=== PATIENT | male | born 1950 | race Caucasian/White ===

== ENCOUNTER → 2018-09-14 | Outpatient (CLI) | payer MEDICARE, OTHER | LOC: M RAD 12:17 | DX: M25.551 Pain in right hip (principal); M25.552 Pain in left hip | CPT/HCPCS: 73521 ==

== ENCOUNTER → 2018-10-04 | Outpatient (CLI) | payer MEDICARE, OTHER | LOC: M RADPRO 11:30 | DX: M16.11 Unilateral primary osteoarthritis, right hip (principal) | CPT/HCPCS: 20610 ==

== ENCOUNTER → 2018-10-04 | Outpatient (CLI) | payer OTHER ==
[~2018-10-04] MED LIST: CONRAY-43 43% 50ML VIAL (Q9960) As Ordered; LIDOCAINE 1% MDV 20ML VIAL As Ordered; TRIAMCINOLONE ACETONIDE SUSP 40 MG/ML VIAL (J3301) As Ordered
== END ==
LOC: M PAIN 13:00
DX: M25.551 Pain in right hip (principal); G89.29 Other chronic pain; E11.9 Type 2 diabetes mellitus without complications; K21.9 Gastro-esophageal reflux disease without esophagitis; Z79.82 Long term (current) use of aspirin; Z79.84 Long term (current) use of oral hypoglycemic drugs; Z79.899 Other long term (current) drug therapy
CPT/HCPCS: J3301

== ENCOUNTER → 2018-11-08 | Outpatient (CLI) | payer MEDICARE, OTHER | LOC: M RAD 17:01 | DX: M25.751 Osteophyte, right hip (principal); M25.551 Pain in right hip | CPT/HCPCS: 73700 ==

== ENCOUNTER → 2018-12-09 | Outpatient (CLI) | payer MEDICARE, OTHER ==
[~2018-12-09] MED LIST changes: +ASPI81TA85 PO; +B-COTAB10 PO; +CINN1CAP6 PO; -CONRAY-43 43% 50ML VIAL (Q9960) As Ordered; +CYCL10TA PO; +ISOVUE-370 76% 100ML VIAL (Q9967) As Ordered ONE; +LASI80TA3 PO; -LIDOCAINE 1% MDV 20ML VIAL As Ordered; +METO75TA PO; +MOBI4TAB PO; +MULTCAP PO; +NIAC10TAB PO; +OXYC10TA12 PO; +PRAV20TA2 PO; +TERB250T12 PO; -TRIAMCINOLONE ACETONIDE SUSP 40 MG/ML VIAL (J3301) As Ordered; +TURM500C PO; +VALS1TAB46 PO; +VITA500C24 PO; +[UNRECOGNIZED DRUG - CODE] PO; +[UNRECOGNIZED DRUG - CODE] PO
--- NOTE | 2018-12-09 15:54 | REP ---
CT lumbar spine without contrast History: Sacroiliac joint pain A diffuse disc bulge with associated osteophyte formation is present at the L1-2 level. There is hypertrophy of the ligamenta flava and posterior to the facets. These findings produce minimal central canal stenosis. The L1 nerves exit the neural foramina without compression. A diffuse disc bulge is present at the L2-3 level. There is hypertrophy of the ligamenta flava and posterior articulating facets. These findings produce moderate central canal stenosis. There is compression of the L2 nerves in the neural foramina. A diffuse disc bulge is present at the L3-4 level. There is hypertrophy of the ligamenta flava and posterior articulating facets. There are 4 mm of the grade 1 spondylolisthesis of L3 on 4. These findings produce severe central canal stenosis. There is compression of the L3 nerves in the neural foramina. A diffuse disc bulge is present at the L4-5 level. There is hypertrophy of the ligamenta flava and posterior articulating facets. There are 4 mm of grade 1 spondylolisthesis of L4 on 5. These findings produce severe central canal stenosis. There is compression of the L4 nerves in the neural foramina. A diffuse disc bulge is present at the L5-S1 level. There is mild compression of the thecal sac. There is hypertrophy of the posterior articulating facets. There are 4 mm of grade 1 spondylolisthesis of L5 on S1. There is compression of the L5 nerves in the neural foramina. The lumbar intervertebral discs are decreased in height. Vacuum phenomenon is present at the L3-4 and L4-5 levels. These findings are consistent with disc degeneration. There is minimal scoliosis convex to the left. Calcifications are present in the right kidney consistent with nephrolithiasis. IMPRESSION: 1. Minimal central canal stenosis at the L1-2 level secondary to disc bulge, ligamentous, and facet hypertrophy and osteophyte formation. 2. Moderate central canal stenosis at the L2-3 level secondary to disc bulge, ligamentous, and facet hypertrophy. 3. Severe central canal stenosis at the L3-4 and L4-5 levels secondary to disc bulge, ligamentous, and facet hypertrophy and grade 1 spondylolisthesis. 4. Diffuse disc bulge at the L5-S1 level with mild thecal sac compression. There is grade 1 spondylolisthesis of L5 on S1. Electronically Signed by Shen Abernathy MD 12/09/2018 04:30 P
== END ==
LOC: M RAD 14:21
PROVIDERS: ATTEND Nurse Practitioner Family
DX: M48.00 Spinal stenosis, site unspecified (principal); M51.26 Other intervertebral disc displacement, lumbar region; M51.27 Other intervertebral disc displacement, lumbosacral region; M47.817 Spondylosis without myelopathy or radiculopathy, lumbosacral region; M53.3 Sacrococcygeal disorders, not elsewhere classified

== ENCOUNTER → 2018-12-09 | Outpatient (CLI) | payer MEDICARE, OTHER ==
[~2018-12-09] MED LIST changes: -ISOVUE-370 76% 100ML VIAL (Q9967) As Ordered ONE
--- NOTE | 2018-12-09 20:51 | REP ---
CT study of chest with IV contrast: History: Cough. Bilateral hilar soft tissue fullness. And right paratracheal thickening on recent chest x-ray at [facility]. Comparison is made with a October 14, 2013 prior chest x-ray from [facility]. CT contrast dose: 100 mL of intravenous Isovue 370 is administered. Technique: The patient was apparently unable to lay on his back due to pain and thus, the study was acquired in a prone position. CT findings: There are some in the dependent lung congestion changes anteriorly due to the prone position. No infiltrate is seen in the lung henao. There is no evidence of hilar or mediastinal lymphadenopathy. Some vascular calcifications noted in the aorta. No evidence of aneurysm or dissection. The thoracic aorta is slightly tortuous. No filling defect is seen in the pulmonary arterial tree. No adrenal lesion is observed. There is opaque material in the somewhat contracted appearing gallbladder consistent with cholelithiasis. There is mild diffuse fatty infiltration of the liver. The right kidney is quite abnormal showing hydronephrosis, delayed contrast enhancement, and a right renal pelvic calculus measuring 1.3 cm in greatest diameter consistent with a obstructive calculus at the ureteropelvic junction. There is peripelvic and periureteral stranding. Perinephric stranding is seen. There is a second large intrarenal calculus in the right mid kidney which measures 1.2 cm. There are multiple other intrarenal calculi in the right kidney. The kidneys are incompletely seen on the scan. Impression: 1. No active disease seen in the chest. 2. There is obstructive uropathy of the right kidney with a 1.3 cm right ureteropelvic junction obstructive stone and multiple large intrarenal calculi in the right kidney. Recommend neurology evaluation. 3. Cholelithiasis. 4. Fatty infiltration of the liver. Electronically Signed by Babar Mcdonald MD 12/10/2018 10:41 A
== END ==
LOC: M RAD 14:04
PROVIDERS: ATTEND Internal Medicine
DX: N20.0 Calculus of kidney (principal); N13.8 Other obstructive and reflux uropathy; K76.0 Fatty (change of) liver, not elsewhere classified; R05 Cough; M48.00 Spinal stenosis, site unspecified; M51.26 Other intervertebral disc displacement, lumbar region; M51.27 Other intervertebral disc displacement, lumbosacral region; M47.817 Spondylosis without myelopathy or radiculopathy, lumbosacral region; M53.3 Sacrococcygeal disorders, not elsewhere classified
CPT/HCPCS: 71260; 72131; Q9967

== ENCOUNTER → 2018-12-23 | Outpatient (CLI) | payer OTHER ==
[~2018-12-23] MED LIST changes: +BUPIVACAINE HCL 0.25% 30 ML VIAL As Ordered ONE; +ISOVUE-M 300 61% 15ML VIAL (Q9967) As Ordered ONE; +LIDOCAINE 1% SDV INJ 30 ML VIAL As Ordered ONE; +TRIAMCINOLONE ACETONIDE SUSP 40 MG/ML VIAL (J3301) As Ordered ONE; +diazePAM 5 MG TAB As Ordered ONE; +oxyCODONE 5MG TAB As Ordered ONE
--- NOTE | 2018-12-23 15:49 | REP ---
SI joint series: Bilateral study three views. History: SI joint injection for pain. Findings: A sequence of three last image hold fluoroscopically obtained spot radiographs of the SI joints document various needle positions and contrast injections associated with bilateral SI joint injection procedure. 16 seconds of fluoroscopy time is utilized. Electronically Signed by Babar Mcdonald MD 12/23/2018 04:01 P
--- NOTE | 2019-01-06 00:03 | ECWPNPC ---
PATIENT NAME: GIANNA QUAN : 1950 GENDER: MALE VISIT DATE: 12/23/2018 DISCHARGE DATE: 12/23/18 1619 VISIT LOCKED DATE TIME: PHYSICIAN: ESTER KERN MD RESOURCE: ESTER KERN MD REASON FOR APPOINTMENT 1. SIJ HISTORY OF PRESENT ILLNESS HISTORY OF PRESENT ILLNESS: PAIN THE PATIENT DESCRIBES THE PAIN... FALL RISK SCREENING: SCREENING :NO FALLS IN THE PAST YEAR CURRENT MEDICATIONS TAKING OXYCODONE HCL 10 MG TABLET 1 TABLET NEEDED ORALLY EVERY 8 HRS, NOTES: 0500 TAKING ERGOCALCIFEROL 54679 UNIT CAPSULE 1 CAPSULE ORALLY , NOTES: 1 WEEK AGO TAKING FLEXERIL 10 MG 30 10 MG TABLETS ONE TABLET ORALLY EVERY 8 HOURS PRN PAIN, NOTES: 2400 TAKING METOPROLOL TARTRATE 75 MG TABLET 1 TABLET WITH FOOD ORALLY DAILY, NOTES: 12/22/18@2400 TAKING VALSARTAN 40 MG TABLET 1 TABLET ORALLY ONCE A DAY, NOTES: 2400 TAKING OMEPRAZOLE 20 MG CAPSULE DELAYED RELEASE 1 CAPSULE ORALLY BID, NOTES: 12/22/18@2400 TAKING METFORMIN HCL 500 MG TABLET 1 TABLET WITH A MEAL ORALLY BID, NOTES: 0600 TAKING ASPIR-81 81 MG TABLET DELAYED RELEASE 1 TABLET ORALLY ONCE A DAY, NOTES: 2 DAYS AGO TAKING MELOXICAM 7.5 MG TABLET 1 TABLET ORALLY ONCE A DAY, NOTES: 2 DAYS AGO TAKING CINNAMON 500 MG TABLET ORALLY BID, NOTES: 0600 TAKING VITAMIN C 1000 MG TABLET 1 TABLET ORALLY ONCE A DAY, NOTES: 0600 TAKING CENTRUM SILVER - TABLET ORALLY , NOTES: 12/22/18@2400 TAKING SUPER B COMPLEX , NOTES: 12/22/18@2400 TAKING FOLIC ACID 800 MCG TABLET 1 TABLET ORALLY ONCE A DAY, NOTES: 12/22/18@2400 TAKING VITAMIN B-12 1000 MCG TABLET 2 TABLET ORALLY ONCE A DAY, NOTES: 12/22/18@2400 TAKING VITAMIN B-1 100 MG TABLET 1 TABLET ORALLY ONCE A DAY, NOTES: 12/22/18@2400 TAKING VITAMIN B6 200 MG TABLET 1 TABLET ORALLY ONCE A DAY, NOTES: 12/22/18@2400 TAKING VITAMIN E 400 UNIT CAPSULE 1 CAPSULE ORALLY ONCE A DAY, NOTES: 12/22/17@2400 NOT-TAKING NICADAN - TABLET ORALLY , NOTES: 0600 NOT-TAKING LASIX 20 MG TABLET 1 TABLET ORALLY BID NEEDED, NOTES: 6 MONTHS AGO DISCONTINUED PRAVASTATIN SODIUM 80 MG TABLET 1 TABLET ORALLY ONCE A DAY, NOTES: NOT CURRENTLY TAKING MEDICATION LIST REVIEWED AND RECONCILED WITH THE PATIENT PAST MEDICAL HISTORY CHRONIC PAIN HYPERLIPIDEMIA ALLERGIES N.K.D.A. SURGICAL HISTORY NO SURGICAL HISTORY DOCUMENTED. FAMILY HISTORY FATHER: DIAGNOSED WITH HYPERTENSION, CANCER MOTHER: DIAGNOSED WITH HYPERTENSION SOCIAL HISTORY GENERAL: TOBACCO USE ARE YOU A:NONSMOKER ALCOHOL SCREENING DID YOU HAVE A DRINK CONTAINING ALCOHOL IN THE PAST YEAR?YES HOW OFTEN DID YOU HAVE A DRINK CONTAINING ALCOHOL IN THE PAST YEAR?MONTHLY OR LESS (1 POINT) HOW MANY DRINKS DID YOU HAVE ON A TYPICAL DAY WHEN YOU WERE DRINKING IN THE PAST YEAR?1 OR 2 (0 POINTS) HOW OFTEN DID YOU HAVE SIX OR MORE DRINKS ON ONE OCCASION IN THE PAST YEAR?NEVER (0 POINTS) POINTS1 INTERPRETATIONNEGATIVE LANGUAGE LANGUAGES SPOKEN:FAROESE LEARNING BARRIERS / SPECIAL NEEDS BARRIERS TO LEARNING?NO HEARING IMPAIRED?YES :HEARING AIDES VISION IMPAIRED?YES :CORRECTIVE LENSES COGNITIVELY IMPAIRED?NO READINESS TO LEARN?YES OCCUPATION: DIABLED. DIET: LOW FAT, LOW CHOLESTEROL, NO CONCENTRATED SWEETS.. EXERCISE: NONE. MARITAL STATUS: . OTHERS AT HOME: SPOUSE, OTHER NON-RELATIVE. PAIN CLINIC PFS, CLERGY, PUBLIC HEALTH REFERRALS HAS THE PATIENT BEEN EDUCATED REGARDING HIS/HER PLAN OF CARE?YES HAS THE PATIENT BEEN EDUCATED REGARDING PAIN, THE RISK FOR PAIN, THE IMPORTANCE OF EFFECTIVE PAIN MANAGEMENT, AND THE PAIN ASSESSMENT PROCESS?YES ADVANCE DIRECTIVE ADVANCE DIRECTIVE DISCUSSED WITH PATIENT:YES HOMERO QUAN [phone] REVIEWED WITH PT 10/04/18 1343 BVREVIEWED WITH PT 11/13/18 1332 BV. HOSPITALIZATION/MAJOR DIAGNOSTIC PROCEDURE CELLULITIS LEFT LEG (2 HOSPITALIZATION) REVIEW OF SYSTEMS REVIEWED BY: PROVIDER: . CONSTITUTIONAL: ANY CHANGE IN YOUR MEDICAL CONDITION? NO . CHILLS NO . FEVER NO . INFECTION: DO YOU HAVE NEW INFECTIONS? NO . DO YOU HAVE HISTORY OF MRSA? NO . MUSCULOSKELETAL: ANY NEW PATTERNS OF PAIN OR NUMBNESS? YES,MORE IN HANDS . GASTROENTEROLOGY: ANY NEW CHANGE IN BOWEL CONTROL? NO . GENITOURINARY: ANY NEW CHANGE IN BLADDER CONTROL? YES, URGENCY IS WORSE . IS THERE A CHANCE YOU COULD BE ? NO . HEMATOLOGY/LYMPH: DO YOU TAKE ANY BLOOD THINNERS? (FOR EXAMPLE- COUMADIN, PLAVIX, AGGRENOX, PLATEL, PRADAXA, OR XARELTO) NO . WHEN WAS YOUR LAST DOSE? DATE: TIME: . NEUROLOGY: HAVE YOU FALLEN IN THE PAST 12 MONTHS? YES . ANY NEW EXTREMITY NUMBNESS OR WEAKNESS? NO . CARDIOLOGY: DO YOU HAVE A PACEMAKER OR DEFIBRILLATOR? NO . RESPIRATORY: HAVE YOU BEEN SICK IN THE PAST WEEK? NO . FEVER NO . FLU LIKE SYMPTOMS? NO . COUGH NO . INTEGUMENTARY: DO YOU HAVE ANY RASHES OR OPEN SORES? NO . ALLERGIC/IMMUNO: ARE YOU ALLERGIC TO IV DYE? NO . ANY NEW ALLERGIES? NO . PSYCHIATRIC: DO YOU HAVE THOUGHTS OF HURTING YOURSELF OR SOMEONE ELSE? NO . ARE YOU ABUSED, NEGLECTED, OR IN AN UNSAFE ENVIRONMENT? NO . ENDOCRINOLOGY: ARE YOU DIABETIC? YES . OTHER: DO YOU NEED ANY PRESCRIPTIONS? NO . IF YES, PLEASE LIST: ____ . ANY NEW PROBLEMS WITH YOUR MEDICATIONS? NO . WHEN DID YOU LAST EAT? ____12/22/18 . WHEN DID YOU LAST DRINK? ____08 . WHAT DID YOU LAST DRINK? ____WATER . NAME OF PERSON DRIVING YOU HOME? ____CAROL . DO YOU HAVE ANY OTHER QUESTIONS OR CONCERNS YES BEEN FEELING VERY TIREDLAST FEW DAYS . VITAL SIGNS WT 275.2 LBS, HT 68 IN, BMI 41.84 INDEX, BP 135/75 MM HG, HR 62 /MIN, RR 18 /MIN, TEMP 97.5 F, OXYGEN SAT % 97%, SAFE IN ENV? (Y/N) Y, NA INITIALS [place] 12:36, REVIEWED BY: ALFREDO. ASSESSMENTS SACROILIITIS, NOT ELSEWHERE CLASSIFIED - M46.1 (PRIMARY) PROCEDURES PN SI PRE PROCEDURE DIAGNOSIS SACROILIITIS, SACROILIAC JOINT DYSFUNCTION POST PROCEDURE DIAGNOSIS SACROILIITIS, SACROILIAC JOINT DYSFUNCTION PROCEDURE BILATERAL SACROILIAC JOINT BLOCK SURGEON DR. ESTER KERN HOME APPLIANCE WASHING MACHINE MECHANIC NONE ANESTHESIA LOCAL PRE PROCEDURE NOTE PATIENT WITH HISTORY OF CHRONIC LOW BACK PAIN. I EVALUATED THE PATIENT AND REVIEWED THE CHART. I WENT OVER THE RISKS, ALTERNATIVES, AND BENEFITS ASSOCIATED WITH THIS PROCEDURE. THE PATIENT WOULD LIKE TO PROCEED AND GAVE CONSENT TO PERFORM THE PROCEDURE. THE PATIENT DENIES UNEXPLAINABLE WEIGHT LOSS, FEVER, CHILLS, OR NEW CHANGES IN URINARY OR BOWEL CONTROL DESCRIPTION OF PROCEDURE THE PATIENT WAS BROUGHT TO THE PROCEDURE ROOM AND PLACED IN THE PRONE POSITION. THE LUMBOSACRAL AREA WAS CLEANED WITH CHLORAPREP SOLUTION AND DRAPED ASEPTICALLY. THE PROCEDURE WAS DONE UNDER STERILE CONDITIONS. I CHECKED LATERALITY AND THE LEVEL WHERE THE PROCEDURE WAS GOING TO BE PERFORMED WITH THE PATIENT AND THE SUPPORTING STAFF AT THE MOMENT OF THE TIME OUT IN THE PROCEDURE ROOM. UNDER FLUOROSCOPIC GUIDANCE, TARGET POINT WAS SELECTED AT THE LOWER BORDER OF THE RIGHT AND LEFT SACROILIAC JOINT. TARGET POINT WAS SELECTED AFTER MEDIAL ROTATION AND TILT OF THE MAGNIFIER OF THE C-ARM. LIDOCAINE WAS USED TO NUMB THE SKIN AND SUBCUTANEOUS TISSUE BELOW IT. A SPINAL NEEDLE, 22-GAUGE, WAS ADVANCED UNDER FLUOROSCOPIC GUIDANCE AND FOLLOWING PATIENT FEEDBACK UNTIL THE TARGET AREA WAS TOUCHED. THE POSITION OF THE NEEDLE WAS VERIFIED WITH AP AND LATERAL VIEWS. AFTER PROPER POSITION OF THE NEEDLE WAS ACHIEVED, ISOVUE M DYE 30%, 0.25 ML, WAS INJECTED SHOWING SPREAD OF THE DYE. THEN, A SOLUTION OF 20 MG OF KENALOG WAS INJECTED IN RIGHT AND LEFT JOINT WITH 3 ML OF BUPIVACAINE 0.125%. THERE WAS NO EVIDENCE OF BLOOD, PARESTHESIA OR CEREBROSPINAL FLUID DURING THE PROCEDURE. THE PATIENT WAS SENT TO THE RECOVERY ROOM. THE PATIENT WAS MOVING THE EXTREMITIES AND DOING WELL. THERE WAS NO COMPLICATION DURING THE PROCEDURE. FLUOROSCOPY TIME WAS 16 SECONDS POST PROCEDURE NOTE THE PATIENT WILL BE SEEN IN A FOLLOW UP IN THE NEXT FEW WEEKS. INSTRUCTIONS WERE GIVEN, QUESTIONS WERE ANSWERED, AND THE PATIENT EXPRESSED UNDERSTANDING AND AGREED WITH THE PLAN. I, NATE BROWN, DOCUMENTED THE ABOVE INFORMATION ACTING A SCRIBE FOR DR. KERN. I HAVE REVIEWED THE ABOVE DOCUMENT, WRITTEN BY NATE KRAUS AND I VERIFY THAT IT IS ACCURATE. DIAGNOSTIC IMAGING [facility] FACET BLOCK (PAIN)[id number] PROCEDURE CODES 6045F RADXPS IN END [id number] PXD [id number] INJECT SACROILIAC JOINT, MODIFIERS: 50 DISPOSITION & COMMUNICATION FOLLOW UP 3 WEEKS ELECTRONICALLY SIGNED BY ESTER KERN MD, MD ON 01/05/2019 AT 02:54 PM EST DISCLAIMER : THIS IS A VISIT SUMMARY EXTRACTED FROM THE [employer] CHART. IT IS NOT A COPY OF THE [employer] PROGRESS NOTE. MTDD
== END ==
LOC: M PAIN 13:45
PROVIDERS: ATTEND Anesthesiology
DX: G89.29 Other chronic pain (principal); M46.1 Sacroiliitis, not elsewhere classified; M53.88 Other specified dorsopathies, sacral and sacrococcygeal region; E11.9 Type 2 diabetes mellitus without complications; E78.5 Hyperlipidemia, unspecified; E66.01 Morbid (severe) obesity due to excess calories; Z68.41 Body mass index [BMI] 40.0-44.9, adult; Z79.84 Long term (current) use of oral hypoglycemic drugs; Z79.82 Long term (current) use of aspirin; Z79.899 Other long term (current) drug therapy
CPT/HCPCS: G0260; J3301; Q9967

== ENCOUNTER → 2019-01-21 | Outpatient (CLI) | payer MEDICARE, OTHER ==
[~2019-01-21] MED LIST changes: -BUPIVACAINE HCL 0.25% 30 ML VIAL As Ordered ONE; +ERGO500014 PO; +FOLI800C PO; -ISOVUE-M 300 61% 15ML VIAL (Q9967) As Ordered ONE; -LIDOCAINE 1% SDV INJ 30 ML VIAL As Ordered ONE; +METF500T4 PO; +OMEP40CA2 PO; -TRIAMCINOLONE ACETONIDE SUSP 40 MG/ML VIAL (J3301) As Ordered ONE; +VITA100T56 PO; +VITA100T92 PO; +VITA400C67 PO; +VITA50TA43 PO; -diazePAM 5 MG TAB As Ordered ONE; -oxyCODONE 5MG TAB As Ordered ONE
--- NOTE | 2019-01-21 15:39 | REP ---
Clinical: Nephrolithiasis. Comparison: 10/18/2012. Findings: Right kidney includes multiple relatively large nonobstructing calculi measuring up to approximately 15 mm as well as a 17 mm calculus at the ureteropelvic junction without current hydronephrosis. 1 cm renal hypodensity likely representing cyst also identified. The left kidney includes small nonobstructing intrarenal calculi measuring up to approximately 3 mm without hydronephrosis or obstructing ureteral calculus. Nodular contour to the liver suggests cirrhosis should be correlated clinically. Spleen, pancreas, bilateral adrenal glands are normal. Cholelithiasis noted without evidence for acute cholecystitis. The enteric system is without obstruction or acute inflammatory process. Normal terminal ileum and appendix identified in the right lower quadrant. Sigmoid diverticula noted without acute diverticulitis. 1 cm fat containing periumbilical hernia identified. Pelvis demonstrates normal bladder and age appropriate prostate/seminal vesicles. Small fat containing inguinal hernias identified. No ascites. No free air. No adenopathy. Abdominal aorta without aneurysm. Osseous structures demonstrate age-related degenerative changes without focal osseous abnormality. Lung bases are clear. Impression: 1. Multiple right intrarenal calculi measuring up to approximately 15 mm along with 17 mm calculus at the ureteropelvic junction without current hydronephrosis or perinephric stranding. 1 cm right renal hypodensity compatible with cyst. 2. Left kidney demonstrates multiple small nonobstructing calculi up to 3 mm. 3. Cholelithiasis. 4. Diverticulosis. 5. 1 cm fat containing periumbilical hernia and small bilateral fat containing inguinal hernias. Electronically Signed by Robin Bhat MD 01/21/2019 03:30 P
== END ==
LOC: M RAD 14:42
PROVIDERS: ATTEND Nurse Practitioner Family
DX: N20.0 Calculus of kidney (principal)

== ENCOUNTER 2019-02-05 08:04 | Day surgery (SDC) | payer MEDICARE, OTHER ==
[~2019-02-05] VITALS: Ht 175.3 cm; Wt 113.4 kg
[~2019-02-05 08:04] MED LIST changes: +CONRAY-60 60% 50ML VIAL (Q9961) As Ordered ONE; +ceFAZolin SOD 1 GM in D5W MINI-BAG PLUS 50 ML IV ONE
[2019-02-05] MEDS ORDERED: CONRAY-60 60% 50ML VIAL (Q9961) As Ordered ONE (09:26)
[2019-02-05] MEDS ORDERED: fentaNYL 100 MCG/2 ML INJECTION (J3010) As Ordered ONE ×3 (09:53→11:38)
[2019-02-05] MEDS ORDERED: PROPOFOL 200 MG/20 ML VIAL As Ordered ONE (09:53)
[2019-02-05] MEDS ORDERED: dexameTHASONE 4 MG/ML 1ML VIAL (J1100) As Ordered ONE (09:53)
[2019-02-05] MEDS ORDERED: MIDAZOLAM INJ 2 MG/2 ML VIAL (J2250) As Ordered ONE (09:53)
[2019-02-05] MEDS ORDERED: LIDOCAINE 2% INJ 100 MG/5 ML SDV (FOR ANES.) As Ordered ONE (09:53)
[2019-02-05] MEDS ORDERED: ONDANSETRON 4MG/2ML VIAL (J2405) As Ordered ONE (09:53)
[2019-02-05] MEDS ORDERED: NORCO, ANEXSIA 5/325MG TABLET (HYDROcodone/ACETAMINOPHEN) PO PRN (13:00)
[2019-02-05] MEDS ORDERED: fentaNYL 100 MCG/2 ML INJECTION (J3010) IV PRN (13:00)
[2019-02-05] MEDS ORDERED: LR 1,000 ML IV SCH (13:00)
[2019-02-05] MEDS ORDERED: PERCOCET 5MG/325MG TAB PO PRN ×2 (13:15)
[2019-02-05] MEDS ORDERED: HYDROMORPHONE HCL 0.5 MG/ 0.5 ML SYRINGE (J1170 PER 1) IV PRN (13:15)
--- NOTE | 2019-02-05 13:33 | REP ---
RETROGRADE PYELOGRAM: 02/05/2019. COMPARISON: CT 01/21/2019. CLINICAL HISTORY: Right renal and ureteral stone disease. FINDINGS: Six images from C-arm fluoroscopy provided to Dr. Hall of the urology division show a wire adjacent to the calcifications and a renal fossae. There are two oval calcifications adjacent to the wire. A double pigtail stent was placed after contrast injection and seen coiling proximally in the renal pelvis and distally in the bladder. Fluoroscopy time: 25 seconds. Electronically Signed by Elian Pena MD 02/05/2019 09:52 P
[2019-02-05 14:00] VITALS: BP 157/84
--- NOTE | 2019-02-06 07:58 | RO ---
DATE OF PROCEDURE: 02/05/2019 PREPROCEDURE DIAGNOSIS: Right kidney and ureteral stones. POSTPROCEDURE DIAGNOSIS: Right kidney and ureteral stones. PROCEDURE: Cystoscopy, right ureteroscopy with laser lithotripsy and basket extraction of stones, right retrograde pyelogram with intraoperative interpretation of images, right ureteral stent placement. SURGEON: Dr. Eben Hall PHOTO ENGRAVER: None. ANESTHESIA: General. OPERATIVE INDICATIONS: This is a 68-year-old male who was found on recent CAT scan to have a large obstructing proximal right ureteral stone as well as kidney stone. He was brought to the operating room today for the above listed procedure. DESCRIPTION OF PROCEDURE: The patient was brought to the operating room where general anesthesia was induced. Prophylactic antibiotics were infused. He was then placed in dorsal lithotomy position and prepped and draped in the usual sterile fashion. At this point, a rigid cystoscope was inserted into the urethral meatus and advanced to the bladder. A guidewire was then advanced up the right collecting system. I then advanced an ureteral access sheath over the wire and into the right collecting system. I then went up the access sheath with a flexible ureteroscope and within the proximal right ureter an approximately 1 to 1.5 cm stone was seen. The stone was then fragmented into several smaller pieces using the 200 micron laser fiber. All the fragments were then removed using a basket. Just a few cm proximal to this was another large stone. This stone was also fragmented into smaller pieces using the 200 micron laser fiber. All the fragments were removed using a basket. I then examined the kidney and a few additional stone fragments measuring 4-5 mm in size were seen and these were grasped with the basket and withdrawn. Once I was satisfied that there were no stone fragments remaining that were too large for the patient to pass, I stopped basketing at this point. A retrograde pyelogram was performed and was notable for mild to moderate hydronephrosis and no extravasation. At this point, I withdrew the ureteroscope along with the access sheath and no remaining stones were seen within the ureter. I then utilized the wire to advance a 6 [place] x 22-32 cm JJ ureteral stent up into the right collecting system. The wire was then removed and there were adequate curls of the stent in the right renal pelvis and in the bladder. The bladder was then emptied of all fluid and this marked the conclusion of the procedure. The patient was then taken out of the dorsal lithotomy position, awakened from anesthesia and transported to the recovery room in stable condition. Estimated blood loss: 10 mL. Complications: None. Specimen: Kidney stone fragments. Plan: The patient will followup in the clinic for stent removal. I will remove the stent approximately four weeks from now given there was scarring in the ureter. I will get a KUB prior to removal of the stent.
[2019-02-11 00:09] LABS: CA Oxalate Dihy 35 % (.); COMMENT Note: (.); Ca Ox Monohydrate 55 % (.)
== END 2019-02-05 14:00 | disposition home or self-care (01) ==
LOC: M SDC 08:04
PROVIDERS: ATTEND Urology
DX: N20.1 Calculus of ureter (principal); N20.0 Calculus of kidney; I10 Essential (primary) hypertension; E11.40 Type 2 diabetes mellitus with diabetic neuropathy, unspecified; E78.5 Hyperlipidemia, unspecified; K21.9 Gastro-esophageal reflux disease without esophagitis; G47.30 Sleep apnea, unspecified; D64.9 Anemia, unspecified; Z87.891 Personal history of nicotine dependence; Z79.82 Long term (current) use of aspirin; Z79.84 Long term (current) use of oral hypoglycemic drugs; Z79.899 Other long term (current) drug therapy
CPT/HCPCS: 52356; 74420; 82360; 88300; C1769; C1894; C2617; J0690; J1100; J2250; J2405; J3010; Q9961

== ENCOUNTER → 2019-02-18 | Outpatient (CLI) | payer MEDICARE, OTHER ==
[~2019-02-18] MED LIST changes: -CONRAY-60 60% 50ML VIAL (Q9961) As Ordered ONE; -ceFAZolin SOD 1 GM in D5W MINI-BAG PLUS 50 ML IV ONE
--- NOTE | 2019-02-19 00:57 | ECWPNPC ---
PATIENT NAME: GIANNA QUAN : 1950 GENDER: MALE VISIT DATE: 02/18/2019 DISCHARGE DATE: 02/18/19 1532 VISIT LOCKED DATE TIME: PHYSICIAN: JEREMIAS RODRIGUEZ RESOURCE: JEREMIAS RODRIGUEZ REASON FOR APPOINTMENT 1. POST PROC HISTORY OF PRESENT ILLNESS HISTORY OF PRESENT ILLNESS: HERE FOR POST PROCEDURE F/U.HAD BILATERAL SIJ ON 12/23/18.REPORTING RESOLUTION OF SEVERE RIGHT HIP PAIN POST PROCEDURE.REPORTING MUSCLE SPASM TYPE PAIN IN LOW BACK WITH RADIATION INTO THIGHS.STATES PAIN LEVEL HAS BEEN TOLERABLE.RATING PAIN VAS 4/10. PAIN THE PATIENT DESCRIBES THE PAIN... FALL RISK SCREENING: SCREENING :NO FALLS REPORTED IN THE LAST YEAR CURRENT MEDICATIONS TAKING OXYCODONE HCL 10 MG TABLET 1 TABLET NEEDED ORALLY EVERY 8 HRS TAKING ERGOCALCIFEROL 61798 UNIT CAPSULE 1 CAPSULE ORALLY , NOTES: TAKES WEEKLY TAKING FLEXERIL 10 MG 30 10 MG TABLETS ONE TABLET ORALLY EVERY 8 HOURS PRN PAIN TAKING METOPROLOL TARTRATE 75 MG TABLET 1 TABLET WITH FOOD ORALLY DAILY TAKING VALSARTAN 40 MG TABLET 1 TABLET ORALLY ONCE A DAY TAKING OMEPRAZOLE 20 MG CAPSULE DELAYED RELEASE 1 CAPSULE ORALLY BID TAKING METFORMIN HCL 500 MG TABLET 1 TABLET WITH A MEAL ORALLY BID TAKING MELOXICAM 7.5 MG TABLET 1 TABLET ORALLY ONCE A DAY TAKING CINNAMON 500 MG TABLET ORALLY BID TAKING VITAMIN C 1000 MG TABLET 1 TABLET ORALLY ONCE A DAY TAKING CENTRUM SILVER - TABLET ORALLY TAKING SUPER B COMPLEX TAKING FOLIC ACID 800 MCG TABLET 1 TABLET ORALLY ONCE A DAY TAKING VITAMIN B-12 1000 MCG TABLET 2 TABLET ORALLY ONCE A DAY TAKING VITAMIN B-1 100 MG TABLET 1 TABLET ORALLY ONCE A DAY TAKING VITAMIN B6 200 MG TABLET 1 TABLET ORALLY ONCE A DAY TAKING VITAMIN E 400 UNIT CAPSULE 1 CAPSULE ORALLY ONCE A DAY TAKING NIACIN ER 750 MG TABLET EXTENDED RELEASE 1 TABLET WITH FOOD ORALLY ONCE A DAY TAKING VITAMIN K2 40 MCG TABLET ORALLY TAKING VITAMIN K 100 MCG TABLET 1 TABLET ORALLY ONCE A DAY NOT-TAKING ASPIR-81 81 MG TABLET DELAYED RELEASE 1 TABLET ORALLY ONCE A DAY, NOTES: CURRENTLY NOT TAKING NOT-TAKING FLUCONAZOLE 200 MG TABLET 1 TABLET ORALLY ONCE A DAY NOT-TAKING PYRIDIUM 200 MG TABLET 1 TABLET AFTER MEALS ORALLY THREE TIMES A DAY NOT-TAKING NICADAN - TABLET ORALLY , NOTES: 0600 NOT-TAKING LASIX 20 MG TABLET 1 TABLET ORALLY BID NEEDED, NOTES: 6 MONTHS AGO MEDICATION LIST REVIEWED AND RECONCILED WITH THE PATIENT PAST MEDICAL HISTORY CHRONIC PAIN HYPERLIPIDEMIA KIDNEY STONE ALLERGIES N.K.D.A. SURGICAL HISTORY NO SURGICAL HISTORY DOCUMENTED. FAMILY HISTORY FATHER: , MELANOMA, DIAGNOSED WITH HYPERTENSION, CANCER MOTHER: , COPD, HYPERTENSION 1 SISTER(S) - HEALTHY. DENIES FAMILY HISTORY OF UROLOGICAL DX. SOCIAL HISTORY GENERAL: TOBACCO USE ARE YOU A:FORMER SMOKER SMOKED MORE THAN 1 PPD SMOKED AND CHEWED. STARTED USING TABACCO 12YRS OLD. FINALLY QUIT . LATEX QUESTIONNAIRE LATEX ALLERGY : HAVE YOU EVER DEVELOPED ANY TYPE OF REACTION AFTER HANDLING LATEX PRODUCTS SUCH RUBBER GLOVES, CONDOMS, DIAPHRAGMS, BALLOONS, SOCKS, OR UNDERWEAR?NO LATEX ALLERGY : HAVE YOU EVER DEVELOPED ANY TYPE OF REACTION DURING OR AFTER DENTAL APPOINTMENT, VAGINAL/RECTAL EXAMINATION, SURGICAL PROCEDURE, OR ANY OTHER EXPOSURE?NO LATEX RISK : HAVE YOU EVER HAD ANY DIFFICULTY BREATHING OR HIVES AFTER EATING OR HANDLING ANY FRUITS, OR VEGETABLES; SUCH KIWI, BANANAS, STONE FRUITS, OR CHESTNUTSNO LATEX RISK : DO YOU HAVE A PREVIOUS PERSONAL HISTORY OF MORE THAN NINE SURGERIES, SPINA BIFIDA, OR REPEATED CATHERTIZATIONS? NO LATEX RISK : ARE YOU FREQUENTLY EXPOSED TO LATEX PRODUCTS IN YOUR OCCUPATION?NO DATE ASKED : 02/18/2019 ALCOHOL SCREENING DID YOU HAVE A DRINK CONTAINING ALCOHOL IN THE PAST YEAR?YES HOW OFTEN DID YOU HAVE A DRINK CONTAINING ALCOHOL IN THE PAST YEAR?MONTHLY OR LESS (1 POINT) HOW MANY DRINKS DID YOU HAVE ON A TYPICAL DAY WHEN YOU WERE DRINKING IN THE PAST YEAR?1 OR 2 (0 POINTS) HOW OFTEN DID YOU HAVE SIX OR MORE DRINKS ON ONE OCCASION IN THE PAST YEAR?NEVER (0 POINTS) POINTS1 INTERPRETATIONNEGATIVE RECREATIONAL DRUG USE DRUG USE?NO CAFFEINE CAFFEINE USE?YES COFFEE = 1 LARGE CUP QD SEXUAL HX HAD SEX IN THE LAST 12 MONTHS (VAGINAL, ORAL, OR ANAL)?NO HAVE YOU EVER HAD AN STD?YES OTHER?YES BAPTISM BAPTISM GNOST IUD, , NO TAOISM BELIEFS THAT WOULD IMPACT HEALTH CARE. LANGUAGE LANGUAGES SPOKEN:THAI EDUCATION LEVEL OF EDUCATION:FINISHED COLLEGE LEARNING BARRIERS / SPECIAL NEEDS BARRIERS TO LEARNING?NO HEARING IMPAIRED?YES BILATERAL :HEARING AIDES VISION IMPAIRED?YES :CORRECTIVE LENSES COGNITIVELY IMPAIRED?NO READINESS TO LEARN?YES DOMESTIC VIOLENCE DO YOU FEEL SAFE IN YOUR ENVIRONMENT?YES OCCUPATION: DIABLED. DIET: LOW FAT, LOW CHOLESTEROL, NO CONCENTRATED SWEETS.. EXERCISE: NONE. MARITAL STATUS: . OTHERS AT HOME: SPOUSE, OTHER NON-RELATIVE. PAIN CLINIC PFS, CLERGY, PUBLIC HEALTH REFERRALS HAS THE PATIENT BEEN EDUCATED REGARDING HIS/HER PLAN OF CARE?YES HAS THE PATIENT BEEN EDUCATED REGARDING PAIN, THE RISK FOR PAIN, THE IMPORTANCE OF EFFECTIVE PAIN MANAGEMENT, AND THE PAIN ASSESSMENT PROCESS?YES ADVANCE DIRECTIVE ADVANCE DIRECTIVE DISCUSSED WITH PATIENT:YES HOMERO QUAN [phone] REVIEWED WITH PT 10/04/18 1343 BVREVIEWED WITH PT 11/13/18 1332 BV. HOSPITALIZATION/MAJOR DIAGNOSTIC PROCEDURE CELLULITIS LEFT LEG (2 HOSPITALIZATION) REVIEW OF SYSTEMS REVIEWED BY: PROVIDER: JEREMIAS ANGULO . CONSTITUTIONAL: ANY CHANGE IN YOUR MEDICAL CONDITION? PT HAD KIDNEY STONE REMOVAL DONE 2 WEEKS AGO . CHILLS NO . FEVER NO . INFECTION: DO YOU HAVE NEW INFECTIONS? NO . DO YOU HAVE HISTORY OF MRSA? NO . MUSCULOSKELETAL: ANY NEW PATTERNS OF PAIN OR NUMBNESS? YES, PT COMPLAINS OF INCREASING MUSCLE SPASMS AT NIGHT IN LOW BACK AND BILATERAL LEGS. . GASTROENTEROLOGY: ANY NEW CHANGE IN BOWEL CONTROL? NO . GENITOURINARY: IS THERE A CHANCE YOU COULD BE ? NO . HEMATOLOGY/LYMPH: DO YOU TAKE ANY BLOOD THINNERS? (FOR EXAMPLE- COUMADIN, PLAVIX, AGGRENOX, PLATEL, PRADAXA, OR XARELTO) NO . WHEN WAS YOUR LAST DOSE? DATE: TIME: . NEUROLOGY: HAVE YOU FALLEN IN THE PAST 12 MONTHS? YES, PT STATES LAST FALL ABOUT A MONTH AGO DUE TO SLIPPING ON ICE. DENIES ANY INJURIES OR ED VISIT. . ANY NEW EXTREMITY NUMBNESS OR WEAKNESS? YES, PT STATES NUMBNESS IN LEFT HAND HAS INCREASED AND IS CONSTANT. . CARDIOLOGY: DO YOU HAVE A PACEMAKER OR DEFIBRILLATOR? NO . RESPIRATORY: HAVE YOU BEEN SICK IN THE PAST WEEK? NO . FEVER NO . FLU LIKE SYMPTOMS? NO . COUGH PT STATES HE HAS CHRONIC COUGH DUE TO INTERSTITIAL LUNG DISEASE. DENIES ANY FEVER. . INTEGUMENTARY: DO YOU HAVE ANY RASHES OR OPEN SORES? NO . ALLERGIC/IMMUNO: ARE YOU ALLERGIC TO IV DYE? NO . ANY NEW ALLERGIES? NO . PSYCHIATRIC: DO YOU HAVE THOUGHTS OF HURTING YOURSELF OR SOMEONE ELSE? NO . ARE YOU ABUSED, NEGLECTED, OR IN AN UNSAFE ENVIRONMENT? NO . ENDOCRINOLOGY: ARE YOU DIABETIC? YES, ON MEDICATION . OTHER: DO YOU NEED ANY PRESCRIPTIONS? NO . IF YES, PLEASE LIST: ____ . ANY NEW PROBLEMS WITH YOUR MEDICATIONS? NO . WHEN DID YOU LAST EAT? ____ . WHEN DID YOU LAST DRINK? ____ . WHAT DID YOU LAST DRINK? ____ . NAME OF PERSON DRIVING YOU HOME? ____ . DO YOU HAVE ANY OTHER QUESTIONS OR CONCERNS NO . VITAL SIGNS WT 274 LBS, HT 68 IN, BMI 41.66 INDEX, BP 163/78 MM HG, HR 74 /MIN, RR 18 /MIN, TEMP 96.5 F, OXYGEN SAT % 96%, NA INITIALS AW 1427, REVIEWED BY: BV. EXAMINATION GENERAL EXAMINATION: GENERAL APPEARANCE:AWAKE,ALERT ,PLEAASANT . PSYCHAFFECT NORMAL . LUNGS:LUNG COREY ARE CLEAR TO AUSCULTATION BILATERALLY. GOOD MOVEMENT OF AIR . HEART:S1, S2 IN A REGULAR RATE AND RHYTHM. NO SIGNIFICANT MURMURS, RUBS OR GALLOPS NOTED . ASSESSMENTS SACROILIAC JOINT PAIN - M53.3 (PRIMARY) RIGHT HIP PAIN - M25.551 TREATMENT SACROILIAC JOINT PAIN NOTES: CONTINUE CONSERVATIVE CARE AT HOME. PROCEDURE CODES FA211 ESTABILISHED PATIENT [facility] CHARGE DISPOSITION & COMMUNICATION FOLLOW UP 2 MONTHS ELECTRONICALLY SIGNED BY ADELE LEGGETT ON 02/18/2019 AT 03:49 PM EDT DISCLAIMER : THIS IS A VISIT SUMMARY EXTRACTED FROM THE [email or web address] CHART. IT IS NOT A COPY OF THE [email or web address] PROGRESS NOTE. LYNDSYE
== END ==
LOC: M PAIN 14:30
PROVIDERS: ATTEND Nurse Practitioner Family
DX: M53.3 Sacrococcygeal disorders, not elsewhere classified (principal); M25.551 Pain in right hip; E78.5 Hyperlipidemia, unspecified; Z87.891 Personal history of nicotine dependence; E11.9 Type 2 diabetes mellitus without complications; E66.01 Morbid (severe) obesity due to excess calories; Z68.41 Body mass index [BMI] 40.0-44.9, adult; Z79.84 Long term (current) use of oral hypoglycemic drugs; Z79.899 Other long term (current) drug therapy

== ENCOUNTER → 2019-03-10 | Outpatient (CLI) | payer MEDICARE, OTHER ==
[~2019-03-10] MED LIST changes: -ERGO500014 PO; +RANI75TA13 PO; -VALS1TAB46 PO; +VALS1TAB66 PO; +VITA100T89 PO; -VITA100T92 PO; +VITA500045 PO; -[UNRECOGNIZED DRUG - CODE] PO; +[UNRECOGNIZED DRUG - CODE] SL
--- NOTE | 2019-03-10 16:02 | REP ---
KUB: Single view. HISTORY: Kidney stone. Comparison retrograde pyelogram February 05, 2019. FINDINGS: Double pigtail ureteral stent is noted in place on the right. The bowel gas pattern is normal. No urinary tract calculus is visible on today's radiograph. Electronically Signed by Babar Mcdonald MD 03/10/2019 04:54 P
== END ==
LOC: M SMT 14:59
PROVIDERS: ATTEND Urology
DX: N20.0 Calculus of kidney (principal)

== ENCOUNTER → 2019-05-21 | Outpatient (CLI) | payer MEDICARE, OTHER ==
--- NOTE | 2019-06-10 02:08 | ECWPNPC ---
PATIENT NAME: GIANNA QUAN : 1950 GENDER: MALE VISIT DATE: 05/21/2019 DISCHARGE DATE: 05/21/19 1420 VISIT LOCKED DATE TIME: PHYSICIAN: JEREMIAS RODRIGUEZ RESOURCE: JEREMIAS RODRIGUEZ REASON FOR APPOINTMENT 1. LOW BACK HISTORY OF PRESENT ILLNESS HISTORY OF PRESENT ILLNESS: HERE FOR F/U OF CHRONIC LOW BACK AND BILAT.LEG PAIN.PAIN HAS ESCALATED LATELY.RATING PAIN VAS 5/10.HERE FOR POST PROCEDURE F/U.HAD BILAT.SIJ ON 12/23/18.CONTINUES WITH RESOLUTION OF RIGHT LEG PAIN SINCE INJECTIONCHIEF AREA OF PAIN IS LOW BACK. PAIN THE PATIENT DESCRIBES THE PAIN... FALL RISK SCREENING: SCREENING :NO FALLS REPORTED IN THE LAST YEAR CURRENT MEDICATIONS TAKING OXYCODONE HCL 10 MG TABLET 1 TABLET NEEDED ORALLY EVERY 6 HRS TAKING ERGOCALCIFEROL 61543 UNIT CAPSULE 1 CAPSULE ORALLY , NOTES: TAKES WEEKLY TAKING FLEXERIL 10 MG 30 10 MG TABLETS ONE TABLET ORALLY EVERY 8 HOURS PRN PAIN TAKING METOPROLOL TARTRATE 75 MG TABLET 1 TABLET WITH FOOD ORALLY DAILY TAKING VALSARTAN 40 MG TABLET 1 TABLET ORALLY ONCE A DAY TAKING OMEPRAZOLE 20 MG CAPSULE DELAYED RELEASE 1 CAPSULE ORALLY BID TAKING METFORMIN HCL 500 MG TABLET 1 TABLET WITH A MEAL ORALLY BID TAKING MELOXICAM 7.5 MG TABLET 1 TABLET ORALLY ONCE A DAY TAKING CINNAMON 500 MG TABLET ORALLY BID TAKING VITAMIN C 1000 MG TABLET 1 TABLET ORALLY ONCE A DAY TAKING CENTRUM SILVER - TABLET ORALLY TAKING SUPER B COMPLEX TAKING FOLIC ACID 800 MCG TABLET 1 TABLET ORALLY ONCE A DAY TAKING VITAMIN B-12 1000 MCG TABLET 2 TABLET ORALLY ONCE A DAY TAKING VITAMIN B-1 100 MG TABLET 1 TABLET ORALLY ONCE A DAY TAKING VITAMIN B6 200 MG TABLET 1 TABLET ORALLY ONCE A DAY TAKING VITAMIN E 400 UNIT CAPSULE 1 CAPSULE ORALLY ONCE A DAY TAKING NIACIN ER 750 MG TABLET EXTENDED RELEASE 1 TABLET WITH FOOD ORALLY ONCE A DAY TAKING VITAMIN K 100 MCG TABLET 1 TABLET ORALLY ONCE A DAY TAKING VITAMIN A 87570 UNIT CAPSULE 1 CAPSULE WITH FOOD OR MILK ORALLY WEEKLY TAKING MAGNESIUM 200 MG TABLET 2 TABLETS WITH A MEAL ORALLY BID TAKING TURMERIC 500 MG CAPSULE DIRECTED ORALLY NOT-TAKING VITAMIN K2 40 MCG TABLET ORALLY NOT-TAKING CIPROFLOXACIN HCL 500 MG TABLET 1 TABLET FOR YOUR CYSTOSCOPY TODAY ORALLY DIRECTED NOT-TAKING ASPIR-81 81 MG TABLET DELAYED RELEASE 1 TABLET ORALLY ONCE A DAY, NOTES: CURRENTLY NOT TAKING NOT-TAKING FLUCONAZOLE 200 MG TABLET 1 TABLET ORALLY ONCE A DAY NOT-TAKING PYRIDIUM 200 MG TABLET 1 TABLET AFTER MEALS ORALLY THREE TIMES A DAY NOT-TAKING NICADAN - TABLET ORALLY , NOTES: 0600 NOT-TAKING LASIX 20 MG TABLET 1 TABLET ORALLY BID NEEDED, NOTES: 6 MONTHS AGO MEDICATION LIST REVIEWED AND RECONCILED WITH THE PATIENT PAST MEDICAL HISTORY CHRONIC PAIN HYPERLIPIDEMIA KIDNEY STONE FATTY LIVER DIABETES TYPE II INTERSTITIAL LUNG DISEASE MEGOLASTIC ANEMIA ALLERGIES N.K.D.A. SURGICAL HISTORY CYSTO 03/10/2019 ESWL FAMILY HISTORY FATHER: , MELANOMA, DIAGNOSED WITH HYPERTENSION, CANCER MOTHER: , COPD, HYPERTENSION 1 SISTER(S) - HEALTHY. DENIES FAMILY HISTORY OF UROLOGICAL DX. SOCIAL HISTORY GENERAL: TOBACCO USE ARE YOU A:FORMER SMOKER SMOKED MORE THAN 1 PPD SMOKED AND CHEWED. STARTED USING TABACCO 12YRS OLD. FINALLY QUIT . OTHERS AT HOME: SPOUSE, OTHER NON-RELATIVE. EDUCATION LEVEL OF EDUCATION:FINISHED COLLEGE DIET: LOW FAT, LOW CHOLESTEROL, NO CONCENTRATED SWEETS.. LANGUAGE LANGUAGES SPOKEN:ESTONIAN DOMESTIC VIOLENCE DO YOU FEEL SAFE IN YOUR ENVIRONMENT?YES RECREATIONAL DRUG USE DRUG USE?NO EXERCISE: NONE. LEARNING BARRIERS / SPECIAL NEEDS BARRIERS TO LEARNING?NO HEARING IMPAIRED?YES BILATERAL :HEARING AIDES VISION IMPAIRED?YES :CORRECTIVE LENSES COGNITIVELY IMPAIRED?NO READINESS TO LEARN?YES PAIN CLINIC PFS, CLERGY, PUBLIC HEALTH REFERRALS HAS THE PATIENT BEEN EDUCATED REGARDING HIS/HER PLAN OF CARE?YES HAS THE PATIENT BEEN EDUCATED REGARDING PAIN, THE RISK FOR PAIN, THE IMPORTANCE OF EFFECTIVE PAIN MANAGEMENT, AND THE PAIN ASSESSMENT PROCESS?YES LATEX QUESTIONNAIRE LATEX ALLERGY : HAVE YOU EVER DEVELOPED ANY TYPE OF REACTION AFTER HANDLING LATEX PRODUCTS SUCH RUBBER GLOVES, CONDOMS, DIAPHRAGMS, BALLOONS, SOCKS, OR UNDERWEAR?NO LATEX ALLERGY : HAVE YOU EVER DEVELOPED ANY TYPE OF REACTION DURING OR AFTER DENTAL APPOINTMENT, VAGINAL/RECTAL EXAMINATION, SURGICAL PROCEDURE, OR ANY OTHER EXPOSURE?NO LATEX RISK : HAVE YOU EVER HAD ANY DIFFICULTY BREATHING OR HIVES AFTER EATING OR HANDLING ANY FRUITS, OR VEGETABLES; SUCH KIWI, BANANAS, STONE FRUITS, OR CHESTNUTSNO LATEX RISK : DO YOU HAVE A PREVIOUS PERSONAL HISTORY OF MORE THAN NINE SURGERIES, SPINA BIFIDA, OR REPEATED CATHERTIZATIONS? NO LATEX RISK : ARE YOU FREQUENTLY EXPOSED TO LATEX PRODUCTS IN YOUR OCCUPATION?NO DATE ASKED : 02/18/2019 CAFFEINE CAFFEINE USE?YES COFFEE = 1 LARGE CUP QD ADVANCE DIRECTIVE ADVANCE DIRECTIVE DISCUSSED WITH PATIENT:YES HOMERO QUAN [phone] ORTHODOXY ORTHODOXY GNOST XIOMARA, , NO WORSHIP BELIEFS THAT WOULD IMPACT HEALTH CARE. MARITAL STATUS: . ALCOHOL SCREENING DID YOU HAVE A DRINK CONTAINING ALCOHOL IN THE PAST YEAR?YES HOW OFTEN DID YOU HAVE A DRINK CONTAINING ALCOHOL IN THE PAST YEAR?MONTHLY OR LESS (1 POINT) HOW MANY DRINKS DID YOU HAVE ON A TYPICAL DAY WHEN YOU WERE DRINKING IN THE PAST YEAR?1 OR 2 (0 POINTS) HOW OFTEN DID YOU HAVE SIX OR MORE DRINKS ON ONE OCCASION IN THE PAST YEAR?NEVER (0 POINTS) POINTS1 INTERPRETATIONNEGATIVE OCCUPATION: DIABLED. SEXUAL HX HAD SEX IN THE LAST 12 MONTHS (VAGINAL, ORAL, OR ANAL)?NO HAVE YOU EVER HAD AN STD?YES OTHER?YES REVIEWED WITH PT 10/04/18 1343 BVREVIEWED WITH PT 11/13/18 1332 BVREVIEWED WITH PATIENT 05/21/19 1334 JS. HOSPITALIZATION/MAJOR DIAGNOSTIC PROCEDURE CELLULITIS LEFT LEG (2 HOSPITALIZATION) REVIEW OF SYSTEMS REVIEWED BY: PROVIDER: JEREMIAS ANGULO . CONSTITUTIONAL: ANY CHANGE IN YOUR MEDICAL CONDITION? NO . CHILLS NO . FEVER NO . INFECTION: DO YOU HAVE NEW INFECTIONS? NO . DO YOU HAVE HISTORY OF MRSA? YES, STATES POSSIBLE MRSA INFECTION IN LEG - HOSPITALIZED WITH CELLULITIS . MUSCULOSKELETAL: ANY NEW PATTERNS OF PAIN OR NUMBNESS? YES, INCREASED NUMBNESS IN BILATERAL HANDS . GASTROENTEROLOGY: ANY NEW CHANGE IN BOWEL CONTROL? NO . GENITOURINARY: ANY NEW CHANGE IN BLADDER CONTROL? NO . IS THERE A CHANCE YOU COULD BE ? NO . HEMATOLOGY/LYMPH: DO YOU TAKE ANY BLOOD THINNERS? (FOR EXAMPLE- COUMADIN, PLAVIX, AGGRENOX, PLATEL, PRADAXA, OR XARELTO) NO . WHEN WAS YOUR LAST DOSE? DATE: TIME: . NEUROLOGY: HAVE YOU FALLEN IN THE PAST 12 MONTHS? YES, STATES FREQUENT FALLS DUE TO NUMBNESS OF FEET AND TRIPPING WHILE WALKING. STATES NO INJURIES, NO ED VISITS . ANY NEW EXTREMITY NUMBNESS OR WEAKNESS? YES, INCREASED NUMBNESS TO BILATERAL HANDS . CARDIOLOGY: DO YOU HAVE A PACEMAKER OR DEFIBRILLATOR? NO . RESPIRATORY: HAVE YOU BEEN SICK IN THE PAST WEEK? YES . FEVER NO . FLU LIKE SYMPTOMS? NO . COUGH YES . INTEGUMENTARY: DO YOU HAVE ANY RASHES OR OPEN SORES? NO . ALLERGIC/IMMUNO: ARE YOU ALLERGIC TO IV DYE? NO . ANY NEW ALLERGIES? NO . PSYCHIATRIC: DO YOU HAVE THOUGHTS OF HURTING YOURSELF OR SOMEONE ELSE? NO . ARE YOU ABUSED, NEGLECTED, OR IN AN UNSAFE ENVIRONMENT? NO . ENDOCRINOLOGY: ARE YOU DIABETIC? YES . OTHER: DO YOU NEED ANY PRESCRIPTIONS? NO . IF YES, PLEASE LIST: ____ . ANY NEW PROBLEMS WITH YOUR MEDICATIONS? NO . WHEN DID YOU LAST EAT? ____ . WHEN DID YOU LAST DRINK? ____ . WHAT DID YOU LAST DRINK? ____ . NAME OF PERSON DRIVING YOU HOME? ____ . DO YOU HAVE ANY OTHER QUESTIONS OR CONCERNS YES, STATES INCREASED SOB, DECREASED ENERGY, DECREASED ROM, AND DECREASED ABILITY TO PERFORM ADL'S . VITAL SIGNS WT 278.8 LBS, HT 68 IN, BMI 42.39 INDEX, BP 145/70 MM HG, HR 72 /MIN, RR 20 /MIN, TEMP 96.9 F, OXYGEN SAT % 95%, SAFE IN ENV? (Y/N) YES, NA INITIALS SC 13:18, REVIEWED BY: MEDARDO. EXAMINATION GENERAL EXAMINATION: LUNGS:LUNG SOUNDS ARE CLEAR . HEART:HEART RATE REGULAR . MUSCULOSKELETAL:*, MUSCLE STRENGTH TESTING 5/5 BILATERAL LOWER EXTREMITIES., , PALPATION: POSITIVE FOR PAIN OVER L/S SPINE. POSITIVE FOR PAIN OVER L/S PARSPINALS.SPECIFIC POINT TENDERNESS OVER BILAT L4/5-L5/S1 LUMBR FACETS WITH FACET LOADING . DIAGNOSTIC:MRI L/S SPINE . 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 LFBT. PREVENTIVE MEDICINE PAIN CLINIC TEACHING: PROCEDURE TEACHING FACET BLOCK HANDOUT PRINTED REVIEWED AND GIVEN TO PT. EM. PROCEDURE CODES FA211 ESTABILISHED PATIENT [facility] FAC[facility] CHARGE DISPOSITION & COMMUNICATION FOLLOW UP POST (REASON: L3/4-L4/5 BILAT. LFBT) ELECTRONICALLY SIGNED BY ADELE LEGGETT ON 06/09/2019 AT 09:08 AM EDT DISCLAIMER : THIS IS A VISIT SUMMARY EXTRACTED FROM THE Charge Payment CHART. IT IS NOT A COPY OF THE Charge Payment PROGRESS NOTE. MTDD
== END ==
LOC: M PAIN 14:00
PROVIDERS: ATTEND Nurse Practitioner Family
DX: G89.29 Other chronic pain (principal); M47.27 Other spondylosis with radiculopathy, lumbosacral region; M48.07 Spinal stenosis, lumbosacral region; E78.5 Hyperlipidemia, unspecified; K76.0 Fatty (change of) liver, not elsewhere classified; E11.9 Type 2 diabetes mellitus without complications; D53.1 Other megaloblastic anemias, not elsewhere classified; J84.9 Interstitial pulmonary disease, unspecified; Z87.442 Personal history of urinary calculi; Z87.891 Personal history of nicotine dependence; Z79.84 Long term (current) use of oral hypoglycemic drugs; Z79.891 Long term (current) use of opiate analgesic; Z79.899 Other long term (current) drug therapy

== ENCOUNTER → 2019-07-09 | Outpatient (CLI) | payer MEDICARE, OTHER ==
[~2019-07-09] MED LIST changes: +BUPIVACAINE HCL 0.25% 30 ML VIAL As Ordered ONE; +ISOVUE-M 200 41% 20ML VIAL (Q9966) As Ordered ONE; +LIDOCAINE 1% SDV INJ 30 ML VIAL As Ordered ONE; +TRIAMCINOLONE ACETONIDE SUSP 40 MG/ML VIAL (J3301) As Ordered ONE; +diazePAM 5 MG TAB As Ordered ONE; +oxyCODONE 5MG TAB As Ordered ONE
--- NOTE | 2019-07-09 20:36 | REP ---
Partial lumbar spine series: Four views . History: Injection procedure for pain. 1 minute 10 seconds of fluoroscopy time is reported. Findings: A sequence of four fluoroscopically obtained last image hold procedural spot radiographs of the lumbar spine document needle position and contrast injection associated with injection procedure. Electronically Signed by Babar Mcdonald MD 07/09/2019 08:28 P
--- NOTE | 2019-07-16 00:50 | ECWPNPC ---
PATIENT NAME: GIANNA QUAN : 1950 GENDER: MALE VISIT DATE: 07/09/2019 DISCHARGE DATE: 07/09/19804 VISIT LOCKED DATE TIME: PHYSICIAN: ESTER KERN MD RESOURCE: ESTER KERN MD REASON FOR APPOINTMENT 1. BILAT. LFBT HISTORY OF PRESENT ILLNESS HISTORY OF PRESENT ILLNESS: PAIN THE PATIENT DESCRIBES THE PAIN... FALL RISK SCREENING: SCREENING :NO FALLS REPORTED IN THE LAST YEAR CURRENT MEDICATIONS TAKING OXYCODONE HCL 10 MG TABLET 1 TABLET NEEDED ORALLY EVERY 6 HRS, NOTES: 0600 TAKING ERGOCALCIFEROL 43441 UNIT CAPSULE 1 CAPSULE ORALLY , NOTES: TAKES WEEKLY; COUPLE WEEKS AGO TAKING FLEXERIL 10 MG 30 10 MG TABLETS ONE TABLET ORALLY EVERY 8 HOURS PRN PAIN, NOTES: 07/08/192344 TAKING METOPROLOL TARTRATE 75 MG TABLET 1 TABLET WITH FOOD ORALLY DAILY, NOTES: 07/08/192344 TAKING VALSARTAN 40 MG TABLET 1 TABLET ORALLY ONCE A DAY, NOTES: 07/08/192344 TAKING OMEPRAZOLE 20 MG CAPSULE DELAYED RELEASE 1 CAPSULE ORALLY BID, NOTES: 07/08/192344 TAKING METFORMIN HCL 500 MG TABLET 1 TABLET WITH A MEAL ORALLY BID, NOTES: 0600 TAKING MELOXICAM 7.5 MG TABLET 1 TABLET ORALLY ONCE A DAY, NOTES: 0600 TAKING CINNAMON 500 MG TABLET ORALLY BID, NOTES: 0600 TAKING VITAMIN C 1000 MG TABLET 1 TABLET ORALLY ONCE A DAY, NOTES: 0600 TAKING CENTRUM SILVER - TABLET ORALLY , NOTES: 07/08/192344 TAKING SUPER B COMPLEX , NOTES: 0600 TAKING FOLIC ACID 800 MCG TABLET 1 TABLET ORALLY ONCE A DAY, NOTES: 07/08/192344 TAKING VITAMIN B-12 1000 MCG TABLET 2 TABLET ORALLY ONCE A DAY, NOTES: 07/08/192344 TAKING VITAMIN B-1 100 MG TABLET 1 TABLET ORALLY ONCE A DAY, NOTES: 07/08/192344 TAKING VITAMIN B6 200 MG TABLET 1 TABLET ORALLY ONCE A DAY, NOTES: 07/08/192344 TAKING VITAMIN E 400 UNIT CAPSULE 1 CAPSULE ORALLY ONCE A DAY, NOTES: 07/08/192344 TAKING NIACIN ER 750 MG TABLET EXTENDED RELEASE 1 TABLET WITH FOOD ORALLY ONCE A DAY, NOTES: 0600 TAKING VITAMIN K 100 MCG TABLET 1 TABLET ORALLY ONCE A DAY, NOTES: 8/13/19 2345 TAKING VITAMIN A 14906 UNIT CAPSULE 1 CAPSULE WITH FOOD OR MILK ORALLY WEEKLY, NOTES: WEEK AGO TAKING MAGNESIUM 200 MG TABLET 2 TABLETS WITH A MEAL ORALLY BID, NOTES: 0600 TAKING TURMERIC 500 MG CAPSULE DIRECTED ORALLY , NOTES: 0600 NOT-TAKING VITAMIN K2 40 MCG TABLET ORALLY NOT-TAKING CIPROFLOXACIN HCL 500 MG TABLET 1 TABLET FOR YOUR CYSTOSCOPY TODAY ORALLY DIRECTED NOT-TAKING ASPIR-81 81 MG TABLET DELAYED RELEASE 1 TABLET ORALLY ONCE A DAY, NOTES: CURRENTLY NOT TAKING NOT-TAKING FLUCONAZOLE 200 MG TABLET 1 TABLET ORALLY ONCE A DAY NOT-TAKING PYRIDIUM 200 MG TABLET 1 TABLET AFTER MEALS ORALLY THREE TIMES A DAY NOT-TAKING NICADAN - TABLET ORALLY , NOTES: 0600 NOT-TAKING LASIX 20 MG TABLET 1 TABLET ORALLY BID NEEDED, NOTES: 6 MONTHS AGO MEDICATION LIST REVIEWED AND RECONCILED WITH THE PATIENT PAST MEDICAL HISTORY CHRONIC PAIN HYPERLIPIDEMIA KIDNEY STONE FATTY LIVER DIABETES TYPE II INTERSTITIAL LUNG DISEASE MEGOLASTIC ANEMIA ALLERGIES N.K.D.A. SURGICAL HISTORY CYSTO 03/10/2019 [facility] FAMILY HISTORY FATHER: , MELANOMA, DIAGNOSED WITH HYPERTENSION, CANCER MOTHER: , COPD, HYPERTENSION 1 SISTER(S) - HEALTHY. DENIES FAMILY HISTORY OF UROLOGICAL DX. SOCIAL HISTORY GENERAL: TOBACCO USE ARE YOU A:FORMER SMOKER SMOKED MORE THAN 1 PPD SMOKED AND CHEWED. STARTED USING TABACCO 12YRS OLD. FINALLY QUIT . OTHERS AT HOME: SPOUSE, OTHER NON-RELATIVE. EDUCATION LEVEL OF EDUCATION:FINISHED COLLEGE DIET: LOW FAT, LOW CHOLESTEROL, NO CONCENTRATED SWEETS.. LANGUAGE LANGUAGES SPOKEN:YAKUT DOMESTIC VIOLENCE DO YOU FEEL SAFE IN YOUR ENVIRONMENT?YES RECREATIONAL DRUG USE DRUG USE?NO EXERCISE: NONE. LEARNING BARRIERS / SPECIAL NEEDS BARRIERS TO LEARNING?NO HEARING IMPAIRED?YES BILATERAL :HEARING AIDES VISION IMPAIRED?YES :CORRECTIVE LENSES COGNITIVELY IMPAIRED?NO READINESS TO LEARN?YES PAIN CLINIC PFS, CLERGY, PUBLIC HEALTH REFERRALS HAS THE PATIENT BEEN EDUCATED REGARDING HIS/HER PLAN OF CARE?YES HAS THE PATIENT BEEN EDUCATED REGARDING PAIN, THE RISK FOR PAIN, THE IMPORTANCE OF EFFECTIVE PAIN MANAGEMENT, AND THE PAIN ASSESSMENT PROCESS?YES LATEX QUESTIONNAIRE LATEX ALLERGY : HAVE YOU EVER DEVELOPED ANY TYPE OF REACTION AFTER HANDLING LATEX PRODUCTS SUCH RUBBER GLOVES, CONDOMS, DIAPHRAGMS, BALLOONS, SOCKS, OR UNDERWEAR?NO LATEX ALLERGY : HAVE YOU EVER DEVELOPED ANY TYPE OF REACTION DURING OR AFTER DENTAL APPOINTMENT, VAGINAL/RECTAL EXAMINATION, SURGICAL PROCEDURE, OR ANY OTHER EXPOSURE?NO LATEX RISK : HAVE YOU EVER HAD ANY DIFFICULTY BREATHING OR HIVES AFTER EATING OR HANDLING ANY FRUITS, OR VEGETABLES; SUCH KIWI, BANANAS, STONE FRUITS, OR CHESTNUTSNO LATEX RISK : DO YOU HAVE A PREVIOUS PERSONAL HISTORY OF MORE THAN NINE SURGERIES, SPINA BIFIDA, OR REPEATED CATHERIZATIONS? NO LATEX RISK : ARE YOU FREQUENTLY EXPOSED TO LATEX PRODUCTS IN YOUR OCCUPATION?NO DATE ASKED : 02/18/2019 CAFFEINE CAFFEINE USE?YES COFFEE = 1 LARGE CUP QD ADVANCE DIRECTIVE ADVANCE DIRECTIVE DISCUSSED WITH PATIENT:YES HOMERO QUAN [phone] MANDAEN MANDAEN GNOST XIOMARA, , NO VOODOO BELIEFS THAT WOULD IMPACT HEALTH CARE. MARITAL STATUS: . ALCOHOL SCREENING DID YOU HAVE A DRINK CONTAINING ALCOHOL IN THE PAST YEAR?YES HOW OFTEN DID YOU HAVE A DRINK CONTAINING ALCOHOL IN THE PAST YEAR?MONTHLY OR LESS (1 POINT) HOW MANY DRINKS DID YOU HAVE ON A TYPICAL DAY WHEN YOU WERE DRINKING IN THE PAST YEAR?1 OR 2 (0 POINTS) HOW OFTEN DID YOU HAVE SIX OR MORE DRINKS ON ONE OCCASION IN THE PAST YEAR?NEVER (0 POINTS) POINTS1 INTERPRETATIONNEGATIVE OCCUPATION: DIABLED. SEXUAL HX HAD SEX IN THE LAST 12 MONTHS (VAGINAL, ORAL, OR ANAL)?NO HAVE YOU EVER HAD AN STD?YES OTHER?YES REVIEWED WITH PT 10/04/18 1343 BVREVIEWED WITH PT 11/13/18 1332 BVREVIEWED WITH PATIENT 05/21/19 1334 JSREVIEWED WITH PATIENT 07/09/19 1507 JS. HOSPITALIZATION/MAJOR DIAGNOSTIC PROCEDURE CELLULITIS LEFT LEG (2 HOSPITALIZATION) REVIEW OF SYSTEMS REVIEWED BY: PROVIDER: . CONSTITUTIONAL: ANY CHANGE IN YOUR MEDICAL CONDITION? NO . CHILLS NO . FEVER NO . INFECTION: DO YOU HAVE NEW INFECTIONS? NO . DO YOU HAVE HISTORY OF MRSA? YES, LEFT LEG HISTORY OF CELLULITIS, STATES IT MAY HAVE BEEN MRSA, HAPPENED 3-4 YEARS AGO . MUSCULOSKELETAL: ANY NEW PATTERNS OF PAIN OR NUMBNESS? YES, STATES PAIN INCREASED . GASTROENTEROLOGY: ANY NEW CHANGE IN BOWEL CONTROL? NO . GENITOURINARY: ANY NEW CHANGE IN BLADDER CONTROL? NO . IS THERE A CHANCE YOU COULD BE ? NO . HEMATOLOGY/LYMPH: DO YOU TAKE ANY BLOOD THINNERS? (FOR EXAMPLE- COUMADIN, PLAVIX, AGGRENOX, PLATEL, PRADAXA, OR XARELTO) NO . WHEN WAS YOUR LAST DOSE? DATE: TIME: . NEUROLOGY: HAVE YOU FALLEN IN THE PAST 12 MONTHS? YES, STATES FALL PRIOR TO LAST VISIT, DISCUSSED AT PREVIOUS VISIT . ANY NEW EXTREMITY NUMBNESS OR WEAKNESS? YES, NUMBNESS TO ARMS AND LEGS, INCREASED RECENTLY. ALSO STATES WORSENING WEAKNESS TO BILATERAL LEGS . CARDIOLOGY: DO YOU HAVE A PACEMAKER OR DEFIBRILLATOR? NO . RESPIRATORY: HAVE YOU BEEN SICK IN THE PAST WEEK? NO . FEVER NO . FLU LIKE SYMPTOMS? NO . COUGH YES, STATES DRY COUGH OFTEN, NOT NEW, NO FEVER RELATED TO THE COUGH, HAS INTERSTITIAL LUNG DISEASE . INTEGUMENTARY: DO YOU HAVE ANY RASHES OR OPEN SORES? NO . ALLERGIC/IMMUNO: ARE YOU ALLERGIC TO IV DYE? NO . ANY NEW ALLERGIES? NO . PSYCHIATRIC: DO YOU HAVE THOUGHTS OF HURTING YOURSELF OR SOMEONE ELSE? NO . ARE YOU ABUSED, NEGLECTED, OR IN AN UNSAFE ENVIRONMENT? NO . ENDOCRINOLOGY: ARE YOU DIABETIC? YES, FSBS 150 THIS AM . OTHER: DO YOU NEED ANY PRESCRIPTIONS? NO . IF YES, PLEASE LIST: ____ . ANY NEW PROBLEMS WITH YOUR MEDICATIONS? NO . WHEN DID YOU LAST EAT? ____07/08/19 2300 . WHEN DID YOU LAST DRINK? ____07/09/19 0600 . WHAT DID YOU LAST DRINK? ____WATER . NAME OF PERSON DRIVING YOU HOME? ____CAROL - . DO YOU HAVE ANY OTHER QUESTIONS OR CONCERNS NO . VITAL SIGNS WT 275.2 LBS, HT 68 IN, BMI 41.84 INDEX, BP 144/89 MM HG, HR 63 /MIN, RR 18 /MIN, TEMP 97.9 F, OXYGEN SAT % 97%, BLOOD GLUCOSE LEVEL 150 THIS AM, SAFE IN ENV? (Y/N) YES, NA INITIALS MO 13:37, REVIEWED BY: JS. ASSESSMENTS SPONDYLOSIS OF LUMBAR REGION WITHOUT MYELOPATHY OR RADICULOPATHY - M47.816 (PRIMARY) SPONDYLOSIS OF LUMBOSACRAL REGION WITHOUT MYELOPATHY OR RADICULOPATHY - M47.817 PROCEDURES PN LUMBAR FACET BLOCK THERAPEUTIC PRE PROCEDURE DIAGNOSIS LUMBAR SPONDYLOSIS, LUMBOSACRAL SPONDYLOSIS POST PROCEDURE DIAGNOSIS LUMBAR SPONDYLOSIS, LUMBOSACRAL SPONDYLOSIS PROCEDURE BILATERAL L4 - L5, BILATERAL L5 - S1 LUMBAR FACET THERAPEUTIC BLOCK SURGEON DR. ESTER KERN DELIVERY TECHNICIAN NONE ANESTHESIA LOCAL PRE PROCEDURE NOTE THE PATIENT HAS A HISTORY OF CHRONIC LOW BACK PAIN. I EVALUATED THE PATIENT AND REVIEWED THE CHART. I WENT OVER THE RISKS, ALTERNATIVES, AND BENEFITS ASSOCIATED WITH THIS PROCEDURE. THE PATIENT WOULD LIKE TO PROCEED AND GIVE CONSENT TO PERFORMED THE PROCEDURE. THE PATIENT DENIES UNEXPLAINABLE WEIGHT LOSS, FEVER, CHILLS, OR NEW CHANGES IN URINARY OR BOWEL CONTROL DESCRIPTION OF PROCEDURE THE PATIENT WAS BROUGHT TO THE PROCEDURE ROOM AND PLACED IN THE PRONE POSITION. THE LUMBOSACRAL AREA WAS CLEANED WITH CHLORAPREP SOLUTION AND DRAPED ASEPTICALLY. THE PROCEDURE WAS DONE UNDER STERILE CONDITIONS. I CHECKED LATERALITY AND THE LEVEL WHERE THE PROCEDURE WAS GOING TO BE PERFORMED WITH THE PATIENT AND THE SUPPORTING STAFF AT THE MOMENT OF THE TIME OUT IN THE PROCEDURE ROOM. UNDER FLUOROSCOPIC GUIDANCE, THE TARGET POINT WAS SELECTED AT THE RIGHT AND LEFT L4-L5 AND RIGHT AND LEFT L5-S1 FACET JOINTS. TARGET POINT WAS SELECTED AFTER LATERAL ROTATION AND TILT OF THE MAGNIFIER OF THE C-ARM. LIDOCAINE 0.5% WAS USED TO NUMB THE SKIN AND THE SUBCUTANEOUS TISSUE BELOW IT. SPINAL NEEDLES, 22-GAUGE, WERE ADVANCED UNDER FLUOROSCOPIC GUIDANCE AND FOLLOWING PATIENT FEEDBACK UNTIL THE TARGETS WERE TOUCHED. THE POSITION OF THE NEEDLES WAS VERIFIED WITH AP AND LATERAL VIEWS. AFTER PROPER POSITION OF THE NEEDLES WAS ACHIEVED, ISOVUE M-200 CONTRAST WAS INJECTED SHOWING ADEQUATE SPREAD OF THE DYE. THEN A SOLUTION OF 1.9 ML OF BUPIVACAINE 0.125% OF KENALOG 10 MG WAS INJECTED AT EACH SITE. THERE WAS NO EVIDENCE OF BLOOD, PARESTHESIA OR CEREBROSPINAL FLUID DURING THE PROCEDURE. THE PATIENT WAS SENT TO THE RECOVERY ROOM. THE PATIENT WAS MOVING THE EXTREMITIES AND DOING WELL. THERE WAS NO COMPLICATION DURING THE PROCEDURE. FLUOROSCOPY TIME WAS 70 SECONDS POST PROCEDURE NOTE THE PATIENT WILL BE SEEN IN A FOLLOW UP IN THE NEXT FEW WEEKS. INSTRUCTIONS WERE GIVEN, QUESTIONS WERE ANSWERED, AND THE PATIENT EXPRESSED UNDERSTANDING AND AGREES WITH THE PLAN. I, BRAYAN BLACKWELL, DOCUMENTED THE ABOVE INFORMATION ACTING A SCRIBE FOR DR. KERN. I HAVE REVIEWED THE ABOVE DOCUMENT, WRITTEN BY BRAYAN BLACKWELL SCRIBStephen AND I VERIFY THAT IT IS ACCURATE. DIAGNOSTIC IMAGING [facility] FACET BLOCK (PAIN)[id number] PROCEDURE CODES 80287 INJ PARAVERT F JNT L/S 1 LEV, MODIFIERS: 50 [id number] INJ PARAVERT F JNT L/S 2 LEV, MODIFIERS: 50 [id number] RADXPS IN END [id number] PXD DISPOSITION & COMMUNICATION FOLLOW UP 3 WEEKS ELECTRONICALLY SIGNED BY ESTER KERN MD, MD ON 07/15/2019 AT 02:00 PM EDT DISCLAIMER : THIS IS A VISIT SUMMARY EXTRACTED FROM THE [employer] CHART. IT IS NOT A COPY OF THE [employer] PROGRESS NOTE. MTDD
== END ==
LOC: M PAIN 13:45
PROVIDERS: ATTEND Anesthesiology
DX: G89.29 Other chronic pain (principal); M47.816 Spondylosis without myelopathy or radiculopathy, lumbar region; M47.817 Spondylosis without myelopathy or radiculopathy, lumbosacral region; M54.5 Low back pain; E11.9 Type 2 diabetes mellitus without complications; Z79.84 Long term (current) use of oral hypoglycemic drugs; Z79.891 Long term (current) use of opiate analgesic; Z79.899 Other long term (current) drug therapy; Z87.891 Personal history of nicotine dependence
CPT/HCPCS: 64493; 64494; J3301; Q9966

== ENCOUNTER → 2019-08-04 | Outpatient (CLI) | payer MEDICARE, OTHER ==
[~2019-08-04] MED LIST changes: -BUPIVACAINE HCL 0.25% 30 ML VIAL As Ordered ONE; -ISOVUE-M 200 41% 20ML VIAL (Q9966) As Ordered ONE; -LIDOCAINE 1% SDV INJ 30 ML VIAL As Ordered ONE; +METF-791 PO; -METF500T4 PO; -TRIAMCINOLONE ACETONIDE SUSP 40 MG/ML VIAL (J3301) As Ordered ONE; -diazePAM 5 MG TAB As Ordered ONE; -oxyCODONE 5MG TAB As Ordered ONE
--- NOTE | 2019-08-19 02:05 | ECWPNPC ---
PATIENT NAME: GIANNA QUAN : 1950 GENDER: MALE VISIT DATE: 08/04/2019 DISCHARGE DATE: 08/04/19 1551 VISIT LOCKED DATE TIME: PHYSICIAN: JEREMIAS RODRIGUEZ RESOURCE: JEREMIAS RODRIGUEZ REASON FOR APPOINTMENT 1. POST PROCEDURE HISTORY OF PRESENT ILLNESS HISTORY OF PRESENT ILLNESS: HERE FOR F/U OF CHRONIC LBP .HE IS POST PROCEDURE.HAD BILAT. L4/5-L5/S1 LFBT ON 07/09/19.REPORTING 1 WEEK OF SIGNIFICANT IMPROVEMENT THEN PAIN RETURNED TO BASELINE.REVIEWED MRI AND DISCUSSED TREATMENT OPTIONS. PAIN THE PATIENT DESCRIBES THE PAIN... FALL RISK SCREENING: SCREENING :NO FALLS REPORTED IN THE LAST YEAR CURRENT MEDICATIONS TAKING OXYCODONE HCL 10 MG TABLET 1 TABLET NEEDED ORALLY EVERY 6 HRS TAKING ERGOCALCIFEROL 30161 UNIT CAPSULE 1 CAPSULE ORALLY TAKING FLEXERIL 10 MG 30 10 MG TABLETS ONE TABLET ORALLY EVERY 8 HOURS PRN PAIN TAKING METOPROLOL TARTRATE 75 MG TABLET 1 TABLET WITH FOOD ORALLY DAILY TAKING VALSARTAN 40 MG TABLET 1 TABLET ORALLY ONCE A DAY TAKING OMEPRAZOLE 20 MG CAPSULE DELAYED RELEASE 1 CAPSULE ORALLY BID TAKING METFORMIN HCL 500 MG TABLET 1 TABLET WITH A MEAL ORALLY BID TAKING MELOXICAM 7.5 MG TABLET 1 TABLET ORALLY ONCE A DAY TAKING CINNAMON 500 MG TABLET ORALLY BID TAKING VITAMIN C 1000 MG TABLET 1 TABLET ORALLY ONCE A DAY TAKING CENTRUM SILVER - TABLET ORALLY TAKING SUPER B COMPLEX TAKING FOLIC ACID 800 MCG TABLET 1 TABLET ORALLY ONCE A DAY TAKING VITAMIN B-12 1000 MCG TABLET 2 TABLET ORALLY ONCE A DAY TAKING VITAMIN B-1 100 MG TABLET 1 TABLET ORALLY ONCE A DAY TAKING VITAMIN B6 200 MG TABLET 1 TABLET ORALLY ONCE A DAY TAKING VITAMIN E 400 UNIT CAPSULE 1 CAPSULE ORALLY ONCE A DAY TAKING NIACIN ER 750 MG TABLET EXTENDED RELEASE 1 TABLET WITH FOOD ORALLY ONCE A DAY TAKING VITAMIN K 100 MCG TABLET 1 TABLET ORALLY ONCE A DAY TAKING VITAMIN A 73983 UNIT CAPSULE 1 CAPSULE WITH FOOD OR MILK ORALLY WEEKLY TAKING MAGNESIUM 200 MG TABLET 2 TABLETS WITH A MEAL ORALLY BID TAKING TURMERIC 500 MG CAPSULE DIRECTED ORALLY , NOTES: 0600 NOT-TAKING VITAMIN K2 40 MCG TABLET ORALLY NOT-TAKING CIPROFLOXACIN HCL 500 MG TABLET 1 TABLET FOR YOUR CYSTOSCOPY TODAY ORALLY DIRECTED NOT-TAKING ASPIR-81 81 MG TABLET DELAYED RELEASE 1 TABLET ORALLY ONCE A DAY, NOTES: CURRENTLY NOT TAKING NOT-TAKING FLUCONAZOLE 200 MG TABLET 1 TABLET ORALLY ONCE A DAY NOT-TAKING PYRIDIUM 200 MG TABLET 1 TABLET AFTER MEALS ORALLY THREE TIMES A DAY NOT-TAKING NICADAN - TABLET ORALLY , NOTES: 0600 NOT-TAKING LASIX 20 MG TABLET 1 TABLET ORALLY BID NEEDED, NOTES: 6 MONTHS AGO MEDICATION LIST REVIEWED AND RECONCILED WITH THE PATIENT PAST MEDICAL HISTORY CHRONIC PAIN HYPERLIPIDEMIA KIDNEY STONE FATTY LIVER DIABETES TYPE II INTERSTITIAL LUNG DISEASE MEGOLASTIC ANEMIA ALLERGIES N.K.D.A. SURGICAL HISTORY CYSTO 03/10/2019 [facility] FAMILY HISTORY FATHER: , MELANOMA, DIAGNOSED WITH HYPERTENSION, OTHER MALIGNANT NEOPLASM OF UNSPECIFIED SITE MOTHER: , COPD, HYPERTENSION 1 SISTER(S) - HEALTHY. DENIES FAMILY HISTORY OF UROLOGICAL DX. SOCIAL HISTORY GENERAL: TOBACCO USE ARE YOU A:FORMER SMOKER SMOKED MORE THAN 1 PPD SMOKED AND CHEWED. STARTED USING TABACCO 12YRS OLD. FINALLY QUIT . OTHERS AT HOME: SPOUSE, OTHER NON-RELATIVE. EDUCATION LEVEL OF EDUCATION:FINISHED COLLEGE DIET: LOW FAT, LOW CHOLESTEROL, NO CONCENTRATED SWEETS.. LANGUAGE LANGUAGES SPOKEN:POLISH DOMESTIC VIOLENCE DO YOU FEEL SAFE IN YOUR ENVIRONMENT?YES RECREATIONAL DRUG USE DRUG USE?NO EXERCISE: NONE. LEARNING BARRIERS / SPECIAL NEEDS BARRIERS TO LEARNING?NO HEARING IMPAIRED?YES BILATERAL VISION IMPAIRED?YES COGNITIVELY IMPAIRED?NO :HEARING AIDES :CORRECTIVE LENSES READINESS TO LEARN?YES PAIN CLINIC PFS, CLERGY, PUBLIC HEALTH REFERRALS HAS THE PATIENT BEEN EDUCATED REGARDING HIS/HER PLAN OF CARE?YES HAS THE PATIENT BEEN EDUCATED REGARDING PAIN, THE RISK FOR PAIN, THE IMPORTANCE OF EFFECTIVE PAIN MANAGEMENT, AND THE PAIN ASSESSMENT PROCESS?YES LATEX QUESTIONNAIRE LATEX ALLERGY : HAVE YOU EVER DEVELOPED ANY TYPE OF REACTION AFTER HANDLING LATEX PRODUCTS SUCH RUBBER GLOVES, CONDOMS, DIAPHRAGMS, BALLOONS, SOCKS, OR UNDERWEAR?NO LATEX ALLERGY : HAVE YOU EVER DEVELOPED ANY TYPE OF REACTION DURING OR AFTER DENTAL APPOINTMENT, VAGINAL/RECTAL EXAMINATION, SURGICAL PROCEDURE, OR ANY OTHER EXPOSURE?NO DATE ASKED : 02/18/2019 LATEX RISK : HAVE YOU EVER HAD ANY DIFFICULTY BREATHING OR HIVES AFTER EATING OR HANDLING ANY FRUITS, OR VEGETABLES; SUCH KIWI, BANANAS, STONE FRUITS, OR CHESTNUTSNO LATEX RISK : DO YOU HAVE A PREVIOUS PERSONAL HISTORY OF MORE THAN NINE SURGERIES, SPINA BIFIDA, OR REPEATED CATHERIZATIONS? NO LATEX RISK : ARE YOU FREQUENTLY EXPOSED TO LATEX PRODUCTS IN YOUR OCCUPATION?NO CAFFEINE CAFFEINE USE?YES COFFEE = 1 LARGE CUP QD ADVANCE DIRECTIVE ADVANCE DIRECTIVE DISCUSSED WITH PATIENT:YES HOMERO QUAN [phone] NONDENOMINATIONAL NONDENOMINATIONAL GNOST XIOMARA, , NO TAOISM BELIEFS THAT WOULD IMPACT HEALTH CARE. MARITAL STATUS: . ALCOHOL SCREENING DID YOU HAVE A DRINK CONTAINING ALCOHOL IN THE PAST YEAR?YES HOW OFTEN DID YOU HAVE SIX OR MORE DRINKS ON ONE OCCASION IN THE PAST YEAR?NEVER (0 POINTS) HOW MANY DRINKS DID YOU HAVE ON A TYPICAL DAY WHEN YOU WERE DRINKING IN THE PAST YEAR?1 OR 2 (0 POINTS) HOW OFTEN DID YOU HAVE A DRINK CONTAINING ALCOHOL IN THE PAST YEAR?MONTHLY OR LESS (1 POINT) POINTS1 INTERPRETATIONNEGATIVE OCCUPATION: DIABLED. SEXUAL HX HAD SEX IN THE LAST 12 MONTHS (VAGINAL, ORAL, OR ANAL)?NO HAVE YOU EVER HAD AN STD?YES OTHER?YES REVIEWED WITH PT 10/04/18 1343 BVREVIEWED WITH PT 11/13/18 1332 BVREVIEWED WITH PATIENT 05/21/19 1334 JSREVIEWED WITH PATIENT 07/09/19 1507 JS. HOSPITALIZATION/MAJOR DIAGNOSTIC PROCEDURE CELLULITIS LEFT LEG (2 HOSPITALIZATION) REVIEW OF SYSTEMS REVIEWED BY: PROVIDER: JEREMIAS ANGULO . CONSTITUTIONAL: ANY CHANGE IN YOUR MEDICAL CONDITION? NO . CHILLS NO . FEVER NO . INFECTION: DO YOU HAVE NEW INFECTIONS? NO . DO YOU HAVE HISTORY OF MRSA? YES, LEFT LEG HX OF . MUSCULOSKELETAL: ANY NEW PATTERNS OF PAIN OR NUMBNESS? YES, LEFT HAND IS GETTING WORSE, NUMBNESS . GASTROENTEROLOGY: ANY NEW CHANGE IN BOWEL CONTROL? NO . GENITOURINARY: ANY NEW CHANGE IN BLADDER CONTROL? YES, URGENCY X 2 WEEKS . IS THERE A CHANCE YOU COULD BE ? NO . HEMATOLOGY/LYMPH: DO YOU TAKE ANY BLOOD THINNERS? (FOR EXAMPLE- COUMADIN, PLAVIX, AGGRENOX, PLATEL, PRADAXA, OR XARELTO) NO . WHEN WAS YOUR LAST DOSE? DATE: TIME: . NEUROLOGY: HAVE YOU FALLEN IN THE PAST 12 MONTHS? YES, FELL LAST WEEK FROM LOSS OF BALANCE, PT DENIES INJURIES . ANY NEW EXTREMITY NUMBNESS OR WEAKNESS? YES, LEFT HAND NUMBNESS AND WEAKNESS . CARDIOLOGY: DO YOU HAVE A PACEMAKER OR DEFIBRILLATOR? NO . RESPIRATORY: HAVE YOU BEEN SICK IN THE PAST WEEK? YES, PT C/O VERTIGO . FEVER NO . FLU LIKE SYMPTOMS? NO . COUGH NO . INTEGUMENTARY: DO YOU HAVE ANY RASHES OR OPEN SORES? NO . ALLERGIC/IMMUNO: ARE YOU ALLERGIC TO IV DYE? NO . ANY NEW ALLERGIES? NO . PSYCHIATRIC: DO YOU HAVE THOUGHTS OF HURTING YOURSELF OR SOMEONE ELSE? NO . ARE YOU ABUSED, NEGLECTED, OR IN AN UNSAFE ENVIRONMENT? NO . ENDOCRINOLOGY: ARE YOU DIABETIC? YES . OTHER: DO YOU NEED ANY PRESCRIPTIONS? YES, OXYCODONE . IF YES, PLEASE LIST: ____ . ANY NEW PROBLEMS WITH YOUR MEDICATIONS? NO . WHEN DID YOU LAST EAT? ____ . WHEN DID YOU LAST DRINK? ____ . WHAT DID YOU LAST DRINK? ____ . NAME OF PERSON DRIVING YOU HOME? ____ . DO YOU HAVE ANY OTHER QUESTIONS OR CONCERNS YES, LEFT HAND WEAKNESS AND NUMBNESS . VITAL SIGNS WT 268.4 LBS, HT 68 IN, BMI 40.81 INDEX, BP 125/66 MM HG, HR 68 /MIN, RR 18 /MIN, TEMP 96.8 F, OXYGEN SAT % 98%, NA INITIALS AW 1459, REVIEWED BY: EM. EXAMINATION GENERAL EXAMINATION: LUNGS:LUNG SOUNDS ARE CLEAR . HEART:HEART RATE REGULAR . MUSCULOSKELETAL:*, MUSCLE STRENGTH TESTING 5/5 BILATERAL LOWER EXTREMITIES., , PALPATION: POSITIVE FOR PAIN OVER L/S SPINE. POSITIVE FOR PAIN OVER L/S PARSPINALS.SPECIFIC POINT TENDERNESS OVER BILAT L4/5-L5/S1 LUMBR FACETS WITH FACET LOADING . DIAGNOSTIC:MRI L/S SPINE . 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 PROCEDURE CODES FA211 ESTABILISHED PATIENT [facility] CHARGE DISPOSITION & COMMUNICATION FOLLOW UP POST (REASON: BILAT L4/5-L5/S1 LFB DX) ELECTRONICALLY SIGNED BY ADELE LEGGETT ON 08/18/2019 AT 02:22 PM EDT DISCLAIMER : THIS IS A VISIT SUMMARY EXTRACTED FROM THE [employer] CHART. IT IS NOT A COPY OF THE [employer] PROGRESS NOTE. LYNDSEY
== END ==
LOC: M PAIN 14:30
PROVIDERS: ATTEND Nurse Practitioner Family
DX: M47.27 Other spondylosis with radiculopathy, lumbosacral region (principal); M48.07 Spinal stenosis, lumbosacral region; G89.29 Other chronic pain; E78.5 Hyperlipidemia, unspecified; E11.9 Type 2 diabetes mellitus without complications; Z87.891 Personal history of nicotine dependence; Z86.14 Personal history of Methicillin resistant Staphylococcus aureus infection; E66.01 Morbid (severe) obesity due to excess calories; Z68.41 Body mass index [BMI] 40.0-44.9, adult; Z79.84 Long term (current) use of oral hypoglycemic drugs; Z79.899 Other long term (current) drug therapy

== ENCOUNTER → 2021-06-10 | Outpatient (CLI) | payer OTHER, MEDICARE ==
[~2021-06-10] MED LIST changes: -ASPI81TA85 PO; +ASPI81TA86 PO; +CELE100C PO; +CYCL-707 PO; -CYCL10TA PO; +D31000TA2 PO; +FLOM0.4C39 PO; +K 10100T PO; -METF-791 PO; +METF-838 PO; +METO1TAB7 PO; +MILK175T PO; -NIAC10TAB PO; +NIAC1TAB14 PO; -OMEP40CA2 PO; +OMEP40CA4 PO; +PROAAER10 INH; -RANI75TA13 PO; +RANI75TA39 PO; +ROSU40TA4 PO; +ZINC1TAB2 PO; +[UNRECOGNIZED DRUG - REMARK]
== END ==
LOC: M LABSMTC 12:57
PROVIDERS: ATTEND Anesthesiology
DX: Z01.812 Encounter for preprocedural laboratory examination (principal); Z20.822 Contact with and (suspected) exposure to COVID-19

== ENCOUNTER 2021-06-15 09:38 | Day surgery (SDC) | payer OTHER, MEDICARE ==
[~2021-06-15] VITALS: Ht 172.7 cm; Wt 122.9 kg
[~2021-06-15 09:38] MED LIST changes: +NS 1,000 ML IV ONE
[2021-06-15] MEDS ORDERED: LIDOCAINE 2% 100MG/5ML SDV (FOR ANES.) As Ordered ONE (10:21)
[2021-06-15] MEDS ORDERED: propofoL 200 MG/20 ML VIAL As Ordered ONE (10:21)
[2021-06-15] MEDS ORDERED: fentaNYL 100 MCG/2 ML INJECTION (J3010) As Ordered ONE (10:22)
--- NOTE | 2021-06-15 10:36 | ROOR ---
Patient Name: Celestine Richard Procedure Date: 06/15/2021 10:12 AM Date of : 1950 Age: 71 Room: [facility] Gender: Male Note Status: Finalized Procedure: Upper GI endoscopy Indications: Heartburn, Exclusion of Hawthorne's esophagus Providers: Cesar Javier MD Referring MD: Phil Rosas MD Requesting Provider: Medicines: Monitored Anesthesia Care Complications: No immediate complications. Procedure: Pre-Anesthesia Assessment: - The heart rate, respiratory rate, oxygen saturations, blood pressure, adequacy of pulmonary ventilation, and response to care were monitored throughout the procedure. The Endoscope was introduced through the mouth, and advanced to the second part of duodenum. The upper GI endoscopy was accomplished without difficulty. The patient tolerated the procedure well. Findings: The Z-line was variable and was found 40 cm from the incisors. No other significant abnormalities were identified in a careful examination of the stomach. The exam of the duodenum was otherwise normal. Impression: - Z-line variable, 40 cm from the incisors. - No specimens collected. - The examination was otherwise normal. Recommendation: - Patient has a contact number available for emergencies. The signs and symptoms of potential delayed complications were discussed with the patient. Return to normal activities tomorrow. Written discharge instructions were provided to the patient. - High fiber diet. - Discharge patient to home. - Continue present medications. - Return to referring physician. - The findings and recommendations were discussed with the patient's family. Procedure Code(s): --- Professional --- 15432, Esophagogastroduodenoscopy, flexible, transoral; diagnostic, including collection of specimen(s) by brushing or washing, when performed (separate procedure) Diagnosis Code(s): --- Professional --- K22.8, Other specified diseases of esophagus R12, Heartburn CPT copyright 2019 [employer]. All rights reserved. The codes documented in this report are preliminary and upon blocker heated metal forms review may be revised to meet current compliance requirements. Cesar Javier MD Cesar Javier MD 06/15/2021 10:35:15 AM Electronically signed by Cesar Javier MD Number of Addenda: 0 Note Initiated On: 06/15/2021 10:12 AM Estimated Blood Loss: Estimated blood loss: none.
--- NOTE | 2021-06-15 10:46 | ROOR ---
Patient Name: Celestine Richard Procedure Date: 06/15/2021 10:19 AM Date of : 1950 Age: 71 Room: [facility] Gender: Male Note Status: Finalized Procedure: Total Colonoscopy to Cecum Indications: High risk colon cancer surveillance: Personal history of colonic polyps, Last colonoscopy: 2014 Providers: Cesar Javier MD Referring MD: Phil Rosas MD Requesting Provider: Medicines: Monitored Anesthesia Care Complications: No immediate complications. Procedure: Pre-Anesthesia Assessment: - The heart rate, respiratory rate, oxygen saturations, blood pressure, adequacy of pulmonary ventilation, and response to care were monitored throughout the procedure. The Colonoscope was introduced through the anus and advanced to the cecum, identified by appendiceal orifice and ileocecal valve. The colonoscopy was performed without difficulty. The patient tolerated the procedure well. The quality of the bowel preparation was fair. Findings: The perianal and digital rectal examinations were normal. A moderate amount of stool was found in the entire colon, precluding visualization. The exam was otherwise without abnormality. Impression: - Preparation of the colon was fair. - Stool in the entire examined colon. - The examination was otherwise normal. - No specimens collected. - The exam was otherwise normal to the cecum. Recommendation: - Patient has a contact number available for emergencies. The signs and symptoms of potential delayed complications were discussed with the patient. Return to normal activities tomorrow. Written discharge instructions were provided to the patient. - High fiber diet. - Discharge patient to home. - Continue present medications. - Repeat colonoscopy in 3 years for surveillance. - Return to referring physician. - The findings and recommendations were discussed with the patient's family. Procedure Code(s): --- Professional --- G0105, Colorectal cancer screening; colonoscopy on individual at high risk Diagnosis Code(s): --- Professional --- Z86.010, Personal history of colonic polyps CPT copyright 2019 [employer]. All rights reserved. The codes documented in this report are preliminary and upon legal technician review may be revised to meet current compliance requirements. Cesar Javier MD Cesar Javier MD 06/15/2021 10:46:09 AM Electronically signed by Cesar Javier MD Number of Addenda: 0 Note Initiated On: 06/15/2021 10:19 AM Estimated Blood Loss: Estimated blood loss: none.
[2021-06-15 11:10] VITALS: BP 121/71
== END 2021-06-15 11:11 | disposition home or self-care (01) ==
LOC: M OPP 09:38
PROVIDERS: ATTEND Internal Medicine Gastroenterology
DX: Z12.11 Encounter for screening for malignant neoplasm of colon (principal); Z86.010 Personal history of colon polyps; K22.8 Other specified diseases of esophagus; R12 Heartburn; Z79.82 Long term (current) use of aspirin; Z79.84 Long term (current) use of oral hypoglycemic drugs; Z79.891 Long term (current) use of opiate analgesic; Z79.899 Other long term (current) drug therapy; Z87.891 Personal history of nicotine dependence
CPT/HCPCS: 43235; 45378; J3010